=== PATIENT | female | born 1945 | race Caucasian/White ===

== ENCOUNTER 2018-02-21 17:38 | Inpatient (IN) | payer MEDICARE, OTHER ==
[~2018-02-21] VITALS: Ht 142.2 cm; Wt 59.9 kg
--- NOTE | 2018-02-21 18:14 | EKG ---
[address] [address] Test Date: 2018-02-21 Test Time: 18:05:25 Pat Name: ANTONELLA MARTINEZ Department: Room: Gender: F Change Attendant: : 1945 Requested By: ALEXIA ROWAN Order Number: [id number] Reading MD: Americo Omalley MD Measurements Intervals [place] Rate: 92 P: 54 MD: 142 QRS: 48 QRSD: 72 T: 53 QT: 326 QTc: 408 Interpretive Statements SINUS RHYTHM Electronically Signed On 02-26-2018 8:21:45 SENIOR TELECOMMUNICATIONS SPECIALIST by Americo Omalley MD
[2018-02-21 19:12] LABS: BASO # 0.1 x10^3/uL (0.0-0.2); BASO % 2 % (0-3); EOS # 0.3 x10^3/uL (0.0-0.7); EOS % 4 % (0-3); HEMATOCRIT 39.4 % (36.0-47.0); HEMOGLOBIN 12.8 g/dL (12.0-15.5); LYMPH % 27 % (24-48); MEAN CORPUSCULAR HEMOGLOBIN 30 pg (25-35); MEAN CORPUSCULAR HGB CONC 33 g/dL (31-37); MEAN CORPUSCULAR VOLUME 91 fL (79-100); MONO # 0.5 x10^3/uL (0.0-1.1); MONO % 7 % (0-9); NEUT # 4.4 x10^3uL (1.8-7.7); NEUT % 61 % (31-73); PLATELET COUNT 369 x10^3/uL (140-400); RED BLOOD COUNT 4.36 x10^6/uL (3.50-5.40); RED CELL DISTRIBUTION WIDTH 14.1 % (11.5-14.5); WHITE BLOOD COUNT 7.3 x10^3/uL (4.0-11.0)
[2018-02-21 19:37] LABS: CALCIUM 9.1 mg/dL (8.5-10.1); CREATININE 1.8 mg/dL (0.6-1.0); GFR 27.7; MAGNESIUM 2.4 mg/dL (1.8-2.4); POTASSIUM 4.5 mmol/L (3.5-5.1)
[2018-02-21] MEDS ORDERED: MAGNESIUM HYDROXIDE 2,400 MG/30 ML ORAL.SUSP. PO PRN (21:45)
[2018-02-21] MEDS ORDERED: MAG HYDROX/AL HYDROX/SIMETH 30 ML ORAL.SUSP PO PRN (21:45)
[2018-02-21] MEDS ORDERED: METHYL SALICYLATE/MENTHOL TOPICAL OINTMENT 29GM TUBE. TP PRN (21:45)
--- NOTE | 2018-02-21 22:07 | ED.ADGEN ---
Past History Past Medical History: Anxiety, COPD, Dementia, Diabetes, Hypertension Alcohol Use: None Drug Use: None Adult General Chief Complaint Chief Complaint medical screening evaluation HPI HPI Patient is a 72-year-old female presents for medical screening evaluation for psychiatric admission. Patient has history of anxiety and dementia and has had reported inappropriate behavior at medical facility. There is no recent medical complaints, hospitalizations or known recent illnesses. Patient is calm, cooperative but requires constant redirection to stay in her room. She is accompanied by a member of healthcare facility.[] Review of Systems Review of Systems Limited due to the presence of dementia. All other systems were reviewed and found to be within normal limits, except as documented in this note. Current Medications Current Medications Current Medications Medications (Trade) Dose Ordered Sig/Katie Start Time Stop Time Status Last Admin Dose Admin Acetaminophen (Tylenol) 650 mg PRN Q6HRS PRN 02/21/18 21:45 UNV Al Hydroxide/Mg Hydroxide (Mylanta Plus Xs) 15 ml PRN AFTMEALHC PRN 02/21/18 21:45 UNV Magnesium Hydroxide (Milk Of Magnesia) 2,400 mg PRN QHS PRN 02/21/18 21:45 UNV Multi-Ingredient Ointment (Analgesic [place]) 1 carmen PRN QID PRN 02/21/18 21:45 UNV Physical Exam Physical Exam Constitutional: Well developed, well nourished, no acute distress, non-toxic appearance. [] HENT: Normocephalic, atraumatic, bilateral external ears normal, oropharynx moist, no oral exudates, nose normal. [] Eyes: PERRLA, EOMI, conjunctiva normal, no discharge. [] Neck: Normal range of motion, no tenderness, supple, no stridor. [] Lungs & Thorax: Bilateral breath sounds clear to auscultation [] Extremities: No tenderness, no cyanosis, no clubbing, ROM intact, no edema. [] Neurologic: Alert and oriented person,, normal motor function, normal sensory function, no focal deficits noted. [] Psychologic: Affect normal, judgement normal, mood normal. [] Current Patient Data Vital Signs Vital Signs Date Time Temp Pulse Resp B/P (MAP) Pulse Ox O2 Delivery O2 Flow Rate FiO2 02/21/18 17:50 97.8 101 18 98 Room Air Lab Results Laboratory Tests Test 02/21/18 18:54 White Blood Count 7.3 x10^3/uL (4.0-11.0) Red Blood Count 4.36 x10^6/uL (3.50-5.40) Hemoglobin 12.8 g/dL (12.0-15.5) Hematocrit 39.4 % (36.0-47.0) Mean Corpuscular Volume 91 fL (79-100) Mean Corpuscular Hemoglobin 30 pg (25-35) Mean Corpuscular Hemoglobin Concent 33 g/dL (31-37) Red Cell Distribution Width 14.1 % (11.5-14.5) Platelet Count 369 x10^3/uL (140-400) Neutrophils (%) (Auto) 61 % (31-73) Lymphocytes (%) (Auto) 27 % (24-48) Monocytes (%) (Auto) 7 % (0-9) Eosinophils (%) (Auto) 4 % (0-3) H Basophils (%) (Auto) 2 % (0-3) Neutrophils # (Auto) 4.4 x10^3uL (1.8-7.7) Lymphocytes # (Auto) 2.0 x10^3/uL (1.0-4.8) Monocytes # (Auto) 0.5 x10^3/uL (0.0-1.1) Eosinophils # (Auto) 0.3 x10^3/uL (0.0-0.7) Basophils # (Auto) 0.1 x10^3/uL (0.0-0.2) Sodium Level 137 mmol/L (136-145) Potassium Level 4.5 mmol/L (3.5-5.1) Chloride Level 102 mmol/L (98-107) Carbon Dioxide Level 28 mmol/L (21-32) Anion Gap 7 (6-14) Blood Urea Nitrogen 27 mg/dL (7-20) H Creatinine 1.8 mg/dL (0.6-1.0) H Estimated GFR (Cockcroft-Gault) 27.7 Glucose Level 138 mg/dL (70-99) H Calcium Level 9.1 mg/dL (8.5-10.1) Magnesium Level 2.4 mg/dL (1.8-2.4) EKG EKG [EKG: Reviewed] Radiology/Procedures Radiology/Procedures [] Course & Med Decision Making Course & Med Decision Making Pertinent Labs and Imaging studies reviewed. (See chart for details) [Medically stable for psychiatric admission.] Final Impression Final Impression [#1 encounter for medical clearance for psychiatric hospitalization] Baldomero Disclaimer Baldomero Disclaimer This electronic medical record was generated, in whole or in part, using a voice recognition dictation system. ALEXIA ROWAN DO Feb 21, 2018 22:07
[2018-02-21] MEDS ORDERED: FAMO20TA5 PO (22:45)
[2018-02-21] MEDS ORDERED: LOPE2TAB56 PO (22:45)
[2018-02-21] MEDS ORDERED: RISP1TAB43 PO (22:45)
[2018-02-21] MEDS ORDERED: EZET10TA18 PO (22:45)
[2018-02-21] MEDS ORDERED: CETI-282 PO (22:45)
[2018-02-21] MEDS ORDERED: LISI10TA2 PO (22:45)
[2018-02-21] MEDS ORDERED: TRAM50TA PO (22:45)
[2018-02-21] MEDS ORDERED: NYST15OI TP (22:45)
[2018-02-21] MEDS ORDERED: ASPI-630 PO (22:45)
[2018-02-21] MEDS ORDERED: LEVO25TA4 PO (22:45)
[2018-02-21] MEDS ORDERED: CITA20TA9 PO (22:45)
[2018-02-21] MEDS ORDERED: ACET325T9 PO (22:45)
[2018-02-21] MEDS ORDERED: RISP0.2519 PO (22:45)
[2018-02-21] MEDS ORDERED: INSU100I32 SQ (22:45)
[2018-02-21] MEDS ORDERED: LOPE2TAB27 PO (22:45)
[2018-02-21] MEDS ORDERED: ALPR1TAB6 PO (22:45)
[2018-02-21] MEDS ORDERED: KETO10DR6 EACHEYE (22:45)
[2018-02-21] MEDS ORDERED: SIME80TA14 PO (22:45)
[2018-02-21] MEDS ORDERED: TRAZ-85 PO (22:45)
[2018-02-21] MEDS ORDERED: GUAI-66 PO (22:45)
[2018-02-21] MEDS ORDERED: IPRA3AMP29 NEB (22:45)
[2018-02-21] MEDS ORDERED: BISA-42 PO (22:45)
[2018-02-21] MEDS ORDERED: CARB15DR3 EACHEYE (22:45)
--- NOTE | 2018-02-21 22:49 | PDOC ---
Exam Note: Michael Note: Please also refer to the separate dictated note~for this date of service dictated separately. Discussed the patient with Nursing staff reviewed the chart.~Reviewed interim history and current functioning. Reviewed vital signs,~ Labs/ Radiology~and current medications noted below. Continue current treatment with the changes noted in the dictated addendum note Assessment: Vital Signs: Vital Signs Date Time Temp Pulse Resp B/P (MAP) Pulse Ox O2 Delivery O2 Flow Rate FiO2 02/21/18 17:50 97.8 101 18 98 Room Air Labs: Laboratory Tests Test 02/21/18 18:54 White Blood Count 7.3 x10^3/uL (4.0-11.0) Red Blood Count 4.36 x10^6/uL (3.50-5.40) Hemoglobin 12.8 g/dL (12.0-15.5) Hematocrit 39.4 % (36.0-47.0) Mean Corpuscular Volume 91 fL (79-100) Mean Corpuscular Hemoglobin 30 pg (25-35) Mean Corpuscular Hemoglobin Concent 33 g/dL (31-37) Red Cell Distribution Width 14.1 % (11.5-14.5) Platelet Count 369 x10^3/uL (140-400) Neutrophils (%) (Auto) 61 % (31-73) Lymphocytes (%) (Auto) 27 % (24-48) Monocytes (%) (Auto) 7 % (0-9) Eosinophils (%) (Auto) 4 % (0-3) H Basophils (%) (Auto) 2 % (0-3) Neutrophils # (Auto) 4.4 x10^3uL (1.8-7.7) Lymphocytes # (Auto) 2.0 x10^3/uL (1.0-4.8) Monocytes # (Auto) 0.5 x10^3/uL (0.0-1.1) Eosinophils # (Auto) 0.3 x10^3/uL (0.0-0.7) Basophils # (Auto) 0.1 x10^3/uL (0.0-0.2) Sodium Level 137 mmol/L (136-145) Potassium Level 4.5 mmol/L (3.5-5.1) Chloride Level 102 mmol/L (98-107) Carbon Dioxide Level 28 mmol/L (21-32) Anion Gap 7 (6-14) Blood Urea Nitrogen 27 mg/dL (7-20) H Creatinine 1.8 mg/dL (0.6-1.0) H Estimated GFR (Cockcroft-Gault) 27.7 Glucose Level 138 mg/dL (70-99) H Calcium Level 9.1 mg/dL (8.5-10.1) Magnesium Level 2.4 mg/dL (1.8-2.4) Current Medications: Meds: Current Medications Acetaminophen (Tylenol) 650 mg PRN Q6HRS PRN PO PAIN / TEMP; Start 02/21/18 at 21:45 Multi-Ingredient Ointment (Analgesic [place]) 1 carmen PRN QID PRN TP MUSCLE PAIN; Start 02/21/18 at 21:45 Al Hydroxide/Mg Hydroxide (Mylanta Plus Xs) 15 ml PRN AFTMEALHC PRN PO DYSPEPSIA; Start 02/21/18 at 21:45 Magnesium Hydroxide (Milk Of Magnesia) 2,400 mg PRN QHS PRN PO CONSTIPATION; Start 02/21/18 at 21:45 Active Scripts Active Reported Nystatin 15 Gm Oint...g. 1 Carmen TP PRN BID PRN Margo-Tussin (Guaifenesin) 100 Mg/5 Ml Liquid 20 Ml PO PRN Q4HRS PRN Tylenol (Acetaminophen) 325 Mg Tablet 2 Tab PO PRN BID PRN Alaway (Ketotifen Fumarate) 10 Ml Drops 1 Drop EACHEYE PRN TID PRN Lisinopril 10 Mg Tablet 10 Mg PO DAILY Teeaglkimberly Sibleypen U-100 (Insulin Glargine,Hum.rec.anlog) 100 Unit/1 Ml Insuln.pen 6 Unit SQ HS Duoneb 0.5-3(2.5) Mg/3 Ml (Albuterol/Ipratropium) 3 Ml Ampul.neb 3 Ml NEB PRN Q6HRS PRN Alprazolam 1 Mg Tablet 1 Mg PO PRN TID PRN Simethicone 80 Mg Tab.chew 125 Mg PO PRN Q6HRS PRN Aspirin 81 Mg Tab.chew 81 Mg PO DAILY Loperamide (Loperamide Hcl) 2 Mg Tablet 2 Mg PO PRN 1X PRN Anti-Diarrhea (Loperamide Hcl) 2 Mg Tablet 2 Mg PO PRN Q6HRS PRN Tramadol Hcl (Tramadol HCl) 50 Mg Tablet 50 Mg PO PRN Q6HRS PRN Refresh Optive Eye Drops (Carboxymethylcellulos/Glycerin) 15 Ml Drops 1 Drop EACHEYE QID Famotidine 20 Mg Tablet 10 Mg PO PRN DAILY PRN Dulcolax (Bisacodyl) 5 Mg Tablet.dr 5 Mg PO PRN DAILY PRN Risperdal (Risperidone) 1 Mg Tablet 1 Mg PO QHS Risperdal (Risperidone) 0.25 Mg Tablet 0.75 Mg PO QHS Levothyroxine Sodium 25 Mcg Tablet 25 Mcg PO DAILYAC Zetia (Ezetimibe) 10 Mg Tablet 10 Mg PO DAILY Trazodone Hcl 50 Mg Tablet 50 Mg PO DAILY Celexa (Citalopram Hydrobromide) 20 Mg Tablet 20 Mg PO DAILY 24Hour Allergy (Cetirizine HCl) 10 Mg Tablet 10 Mg PO DAILY I have reviewed the current psychotropics carefully including drug interactions. Risk benefit ratio favors no change other than as noted in my dictated progress note. MARIAN PENA MD Feb 21, 2018 22:49
[2018-02-21 23:11] LABS: ALBUMIN 3.9 g/dL (3.4-5.0); DIRECT BILIRUBIN 0.1 mg/dL (0.0-0.2); TOTAL BILIRUBIN 0.2 mg/dL (0.2-1.0); TOTAL PROTEIN 7.9 g/dL (6.4-8.2)
[2018-02-22] MEDS ORDERED: BISACODYL TAB 5 MG TABLET.DR. PO PRN (02:00)
[2018-02-22] MEDS ORDERED: IPRATRPIUM/ALBUTEROL 0.5/2.5MG 3 ML NEBU. NEB PRN (02:00)
[2018-02-22] MEDS ORDERED: LOPERAMIDE 2 MG CAPSULE PO PRN ×3 (02:00→10:15)
[2018-02-22] MEDS ORDERED: FAMOTIDINE 20 MG TABLET PO PRN (02:00)
[2018-02-22] MEDS ORDERED: guaiFENesin 300 MG/15 ML LIQUID PO PRN (02:00)
[2018-02-22] MEDS ORDERED: NYSTATIN 100,000 UNIT/GM TOPICAL OINTMENT 15GM TUBE. TP PRN (02:00)
[2018-02-22] MEDS ORDERED: ALPRAZolam 0.5 MG TABLET PO PRN (02:00)
[2018-02-22] MEDS ORDERED: SIMETHICONE 80 MG TAB.CHEW PO PRN (02:00)
[2018-02-22] MEDS: LEVOTHYROXINE 25 MCG TABLET. PO SCH (05:23)
[2018-02-22] MEDS: ASPIRIN 81 MG TAB.CHEW PO SCH (05:23)
[2018-02-22 05:27] VITALS: BP 117/55
[2018-02-22] MEDS ORDERED: KETOTIFEN FUMARATE 0.025% OPHT SOLUTION BOTTLE. OU PRN (07:45)
[2018-02-22] MEDS ORDERED: POLYVINYL ALCOHOL/POVIDONE/PF OPHTH SOLUTION DROPERETTE. OU SCH (09:00)
[2018-02-22] MEDS ORDERED: POLYVINYL ALCOHOL 1.4% OPHTH SOLUTION 15ML BOTTLE. OU SCH (09:00)
[2018-02-22] MEDS ORDERED: traZODone 50 MG TABLET. PO SCH (09:00)
[2018-02-22] MEDS ORDERED: POLYVINYL ALCOHOL/POVIDONE/PF OPHTH SOLUTION DROPERETTE. OU PRN (10:15)
[2018-02-22] MEDS: EZETIMIBE 10 MG TABLET PO SCH (10:26)
[2018-02-22] MEDS: CETIRIZINE HCL 10 MG TABLET PO SCH (10:28)
[2018-02-22] MEDS: LISINOPRIL 10 MG TABLET PO SCH (10:28)
[2018-02-22] MEDS: CITALOPRAM 20 MG TABLET. PO SCH (10:28)
[2018-02-22] MEDS: risperiDONE 0.25 MG TABLET. PO SCH (10:28)
[2018-02-22] MEDS: ACETAMINOPHEN 325 MG TABLET PO PRN (10:30)
[2018-02-22 12:36] LABS: BILIRUBIN,URINE NEG (NEG); CLARITY,URINE CLEAR; COLOR,URINE STRAW; GLUCOSE,URINE NEG (NEG); NITRITE,URINE NEG (NEG); RBC,URINE 0 /HPF (0-2); UROBILINOGEN,URINE 0.2 mg/dL (0.2 mg/dL)
[2018-02-22 12:37] LABS: BACTERIA,URINE FEW /HPF (0-FEW); SQUAMOUS EPITHELIAL CELL,UR OCC /LPF; YEAST,URINE PRESENT /HPF
[2018-02-22 15:42] VITALS: BP 135/76
[2018-02-22] MEDS: ACETAMINOPHEN 325 MG TABLET PO SCH (20:56)
[2018-02-22] MEDS: INSULIN GLARGINE 300 UNITS/3 ML INSULN.PEN. SQ SCH (20:58)
[2018-02-22] MEDS ORDERED: RISPERIDONE 1 MG PO SCH (21:00)
--- NOTE | 2018-02-22 22:38 | PDOC ---
Exam Note: Michael Note: Please also refer to the separate dictated note~for this date of service dictated separately.~Patient seen individually. Discussed the patient with Nursing staff reviewed the chart.~Reviewed interim history and current functioning. Reviewed vital signs,~Labs/ Radiology~and current medications noted below. Continue current treatment with the changes noted in the dictated addendum note Assessment: Vital Signs: Vital Signs Date Time Temp Pulse Resp B/P (MAP) Pulse Ox O2 Delivery O2 Flow Rate FiO2 02/22/18 15:42 98.4 94 20 135/76 (95) 95 Room Air Labs: Laboratory Tests Test 02/22/18 11:50 02/22/18 19:25 Urine Collection Type Unknown Urine Color Straw Urine Clarity Clear Urine pH 7.0 Urine Specific Willard 1.015 Urine Protein Neg (NEG-TRACE) Urine Glucose (UA) Neg mg/dL (NEG) Urine Ketones (Stick) Neg mg/dL (NEG) Urine Blood Neg (NEG) Urine Nitrite Neg (NEG) Urine Bilirubin Neg (NEG) Urine Urobilinogen Dipstick 0.2 mg/dL (0.2 mg/dL) Urine Leukocyte Esterase Neg (NEG) Urine RBC 0 /HPF (0-2) Urine WBC 1-4 /HPF (0-4) Urine Squamous Epithelial Cells Occ /LPF Urine Bacteria Few /HPF (0-FEW) Urine Yeast Present /HPF Glucose (Fingerstick) 107 mg/dL (70-99) H Current Medications: Meds: Current Medications Acetaminophen (Tylenol) 650 mg PRN Q6HRS PRN PO PAIN / TEMP Last administered on 02/22/18at 10:30; Start 02/21/18 at 21:45 Multi-Ingredient Ointment (Analgesic [place]) 1 hayley PRN QID PRN TP MUSCLE PAIN; Start 02/21/18 at 21:45 Al Hydroxide/Mg Hydroxide (Mylanta Plus Xs) 15 ml PRN AFTMEALHC PRN PO DYSPEPSIA Last administered on 02/22/18at 13:53; Start 02/21/18 at 21:45 Magnesium Hydroxide (Milk Of Magnesia) 2,400 mg PRN QHS PRN PO CONSTIPATION; Start 02/21/18 at 21:45 Bisacodyl (Dulcolax Tab) 5 mg PRN DAILY PRN PO CONSTIPATION; Start 02/22/18 at 02:00 Citalopram Hydrobromide (CeleXA) 20 mg DAILY PO Last administered on at 10:28; Start 02/22/18 at 09:00 Guaifenesin (Robitussin) 400 mg PRN Q4HRS PRN PO COUGH; Start 02/22/18 at 02: 00 Insulin Glargine (Lantus) 6 units HS SQ Last administered on 02/22/18at 20:58; Start 02/22/18 at 21:00 Albuterol/ Ipratropium (Duoneb) 3 ml PRN Q6HRS PRN NEB copd; Start 02/22/18 at 02:00 Lisinopril (Prinivil) 10 mg DAILY PO Last administered on 02/22/18at 10:28; Start 02/22/18 at 09:00 Nystatin (Mycostatin) 1 hayley PRN BID PRN TP redness/rash; Start 02/22/18 at 02: 00 Simethicone (Gas-X) 120 mg PRN Q6HRS PRN PO DYSPEPSIA; Start 02/22/18 at 02:00 Tramadol HCl (Ultram) 50 mg PRN Q6HRS PRN PO PAIN; Start 02/22/18 at 02:00 Alprazolam (Xanax) 1 mg PRN TID PRN PO ANXIETY / AGITATION; Start 02/22/18 at 02:00 Aspirin (Children'S Aspirin) 81 mg DAILYWBKFT PO Last administered on at 05:23; Start 02/22/18 at 08:00 Artificial Tears (Artificial Tears) 1 drop QID OU ; Start 02/22/18 at 09:00; Status Cancel Cetirizine HCl (ZyrTEC) 10 mg DAILY PO Last administered on 02/22/18at 10:28; Start 02/22/18 at 09:00 EZETIMIBE (Zetia) 10 mg DAILY PO Last administered on 02/22/18at 10:26; Start 02/22/18 at 09:00 Famotidine (Pepcid) 10 mg PRN DAILY PRN PO DYSPEPSIA Last administered on 02/22at 13:53; Start 02/22/18 at 02:00 Ketotifen Fumarate (Zaditor) 1 drop PRN TID PRN OU ITCHY EYES Last administered on 02/22/18at 16:49; Start 02/22/18 at 07:45 Levothyroxine Sodium (Synthroid) 25 mcg DAILY06 PO Last administered on at 05:23; Start 02/22/18 at 06:00 Loperamide HCl (Imodium) 2 mg PRN Q6HRS PRN PO DIARRHEA; Start 02/22/18 at 02: 00 Loperamide HCl (Imodium) 2 mg PRN 1X PRN PO DIARRHEA; Start 02/22/18 at 02:00 ; Stop 02/22/18 at 10:04; Status DC Risperidone (RisperDAL) 0.75 mg DAILY PO Last administered on 02/22/18at 10:28 ; Start 02/22/18 at 09:00 Non-Formulary Medication (Risperidone (Risperdal)) 1 mg QHS PO ; Start at 21:00; Stop 02/22/18 at 21:00; Status DC Trazodone HCl (Desyrel) 50 mg DAILY PO Last administered on 02/22/18at 10:29; Start 02/22/18 at 09:00; Stop 02/22/18 at 10:04; Status DC Artificial Tears (Refresh Classic) 1 drop QID OU ; Start 02/22/18 at 09:00; Stop 02/22/18 at 10:04; Status DC Acetaminophen (Tylenol) 650 mg BID PO Last administered on 02/22/18at 20:56; Start 02/22/18 at 21:00 Loperamide HCl (Imodium) 4 mg PRN DAILY PRN PO DIARRHEA Last administered on at 10:48; Start 02/22/18 at 10:15 Artificial Tears (Refresh Classic) 1 drop PRN QID PRN OU DRY EYE; Start at 10:15 Trazodone HCl (Desyrel) 25 mg DAILY PO ; Start 02/23/18 at 09:00 Active Scripts Active Reported Nystatin 15 Gm Oint...g. 1 Hayley TP PRN BID PRN Margo-Tussin (Guaifenesin) 100 Mg/5 Ml Liquid 20 Ml PO PRN Q4HRS PRN Tylenol (Acetaminophen) 325 Mg Tablet 2 Tab PO BID Alaway (Ketotifen Fumarate) 10 Ml Drops 1 Drop EACHEYE PRN TID PRN Lisinopril 10 Mg Tablet 10 Mg PO DAILY Basaglar Kwikpen U-100 (Insulin Glargine,Hum.rec.anlog) 100 Unit/1 Ml Insuln.pen 6 Unit SQ HS Duoneb 0.5-3(2.5) Mg/3 Ml (Albuterol/Ipratropium) 3 Ml Ampul.neb 3 Ml NEB PRN Q6HRS PRN Alprazolam 1 Mg Tablet 1 Mg PO PRN TID PRN Simethicone 80 Mg Tab.chew 125 Mg PO PRN Q6HRS PRN Aspirin 81 Mg Tab.chew 81 Mg PO DAILY Loperamide (Loperamide Hcl) 2 Mg Tablet 4 Mg PO PRN DAILY PRN Anti-Diarrhea (Loperamide Hcl) 2 Mg Tablet 2 Mg PO PRN Q6HRS PRN Tramadol Hcl (Tramadol HCl) 50 Mg Tablet 50 Mg PO PRN Q6HRS PRN Refresh Optive Eye Drops (Carboxymethylcellulos/Glycerin) 15 Ml Drops 1 Drop EACHEYE PRN QID PRN Famotidine 20 Mg Tablet 10 Mg PO PRN DAILY PRN Dulcolax (Bisacodyl) 5 Mg Tablet.dr 5 Mg PO PRN DAILY PRN Risperdal (Risperidone) 0.25 Mg Tablet 0.75 Mg PO QHS Levothyroxine Sodium 25 Mcg Tablet 25 Mcg PO DAILYAC Zetia (Ezetimibe) 10 Mg Tablet 10 Mg PO DAILY Trazodone Hcl 50 Mg Tablet 25 Mg PO DAILY Celexa (Citalopram Hydrobromide) 20 Mg Tablet 20 Mg PO DAILY 24Hour Allergy (Cetirizine HCl) 10 Mg Tablet 10 Mg PO DAILY I have reviewed the current psychotropics carefully including drug interactions. Risk benefit ratio favors no change other than as noted in my dictated progress note. Diagnosis: Problems: (1) Anxiety disorder (2) Dementia, vascular, with delusions (3) Dementia, vascular, with depression (4) Dementia in Alzheimer's disease with depression (5) Dementia in Alzheimer's disease with delusions (6) Impulse control disorder MARIAN PENA MD Feb 22, 2018 22:38
[2018-02-23] MEDS: LEVOTHYROXINE 25 MCG TABLET. PO SCH (05:24)
[2018-02-23 06:15] VITALS: BP 108/70
[2018-02-23] MEDS: ACETAMINOPHEN 325 MG TABLET PO SCH ×2 (07:51→18:09)
[2018-02-23] MEDS: LISINOPRIL 10 MG TABLET PO SCH (07:51)
[2018-02-23] MEDS: risperiDONE 0.25 MG TABLET. PO SCH (07:51)
[2018-02-23] MEDS: ASPIRIN 81 MG TAB.CHEW PO SCH (07:51)
[2018-02-23] MEDS: CETIRIZINE HCL 10 MG TABLET PO SCH (07:51)
[2018-02-23] MEDS: CITALOPRAM 20 MG TABLET. PO SCH (07:51)
[2018-02-23] MEDS: EZETIMIBE 10 MG TABLET PO SCH (07:51)
[2018-02-23] MEDS: traZODone 50 MG TABLET. PO SCH (07:53)
--- NOTE | 2018-02-23 09:13 | CONS ---
DATE OF CONSULTATION: 02/22/2018 REASON FOR CONSULTATION: Medical management. HISTORY OF PRESENT ILLNESS: The patient is a 72-year-old female patient, a resident at [place], [place], who was admitted on account of the fact that she called the police about delusional theft, slamming and banging on doors, said her doctor had proposed to her. All this in a background of dementia, depression, behavioral disturbances, and delusion. She has multiple medical problems including hypertension, type 2 diabetes, hyperlipidemia, COPD. PAST PSYCHIATRIC HISTORY: Significant for dementia, depression and delusion. PAST SURGICAL HISTORY: Unremarkable. FAMILY HISTORY: Unremarkable. SOCIAL HISTORY: She is currently a resident at [facility] and no further information that could obtained from her. ALLERGIES: She has a huge list of allergies, as SHE IS ALLERGIC TO LORAZEPAM, ACETAMINOPHEN, BACLOFEN, OXYCODONE, NITROFURANTOIN, AMOXICILLIN, PREVACID, WELLBUTRIN, DANTROLENE, FLEXERIL, ATORVASTATIN, SPRIX, FERMENTOL, DULOXETINE AND ANORO ELLIPTA, TORADOL, ZOFRAN, CEFDINIR, NITROSTAT. MEDICATIONS: She is currently on following medications: She is on cetirizine 10 mg once a day, ipratropium bromide, albuterol sulfate by nebulizer every 6 hours, Zetia 10 mg at bedtime, lisinopril 10 mg once a day, aspirin 81 mg once a day, tramadol 50 mg every 6 hours, Tylenol 650 mg twice a day, citalopram hydrobromide for Celexa 20 mg daily, trazodone 25 mg daily, risperidone 0.75 mg at bedtime, alprazolam 1 mg 3 times a day, guaifenesin 20 mL every 4 hours. She is on ketotifen fumarate 1 drop to both eyes 3 times a day, Refresh Optive eyedrops 1 drop to both eyes 4 times a day, loperamide 2 mg every 6 hours, loperamide 4 mg daily. She is on simethicone 125 mg every 6 hours, bisacodyl 5 mg orally daily p.r.n. for constipation, famotidine 20 mg daily. She is on Lantus insulin 6 units at bedtime, levothyroxine sodium 25 mcg once a day, nystatin ointment applied topically twice a day. PHYSICAL EXAMINATION: GENERAL: On examining her, she looked well and was clearly in no apparent respiratory distress, pale, not jaundice, cyanosis, thyromegaly. No jugular venous distension. No limb edema. VITAL SIGNS: Her heart rate was 78, blood pressure was 117/75, temperature was 97.8, respiratory rate 20, and oxygen saturation was 95%. HEAD, EYES, EARS, NOSE AND THROAT: Showed normocephalic, atraumatic. NECK: Supple. HEART: Showed normal first and second heart sounds with no gallop, rub or murmur. CHEST: Clear to auscultation. No crepitation or rhonchi. ABDOMEN: Distended, soft, nontender. NEUROLOGIC: She is confused, delusional, paranoid, but otherwise all her cranial nerves are intact. EXTREMITIES: She moves extremities without difficulty. She ambulates without assistance or assistive devices. LABORATORY WORK: Shows a white cell count 7300, hemoglobin 13, hematocrit 39, MCV 91, and platelet count 369,000. Her chemistry showed a serum sodium 137, potassium 4.5, chloride 102, bicarbonate 28, anion gap of 7, BUN 27, creatinine 1.8, estimated GFR was 28 mL per minute. Her glucose 138, calcium 9.1, magnesium 2.4. Her total bilirubin, AST, ALT, alkaline phosphatase were normal. Total protein was 7.9, albumin was 3.9. She has mixed hyperlipidemia. TSH was 2.429. Unfortunately, she is allergic to STATINS. She is on Zetia, but apparently is not efficient. Urinalysis was essentially unremarkable. IMPRESSION: In summary, this is a 72-year-old female patient, a resident at [facility], who came in with the account that she called the police about delusional theft, slamming and banging on doors, said her doctor I had proposed to her. All this in a background of dementia with depression. Medically, all her vital signs are stable. Her lab works are all within acceptable range. PLAN: My plan is to follow her closely and review all the lab work that are still pending at the time of this dictation. Thank you, Dr. Yusuf for allowing me to participate in the care of this patient. AGUILA SULLIVAN MD DR: Xuan JOB#: [id number] / [id number]
--- NOTE | 2018-02-23 10:49 | HP ---
ADMIT DATE: 02/21/2018 PSYCHIATRIC ADMISSION HISTORY/EVALUATION This is a late entry 02/22/2018 covers elements not covered in my initial note. I met with the patient in the evening previously discussed with the nursing staff on several occasions and with Sarah Neely, health unit coordinator after the patient referred to us from [facility] in [place], [place] by Dr. Samson , her primary care physician on account of worsening confusion, psychosis. Reportedly on 02/21/2018, she called the police about delusional thefts and people were stealing. She was slamming and banging on the doors. She said her doctor had proposed to her. She was quite manic, psychotic, confused, disoriented, had failed outpatient psychiatric interventions resulting in this referral. CHIEF COMPLAINT: "No, I don't know the date. My memory is not good." HISTORY OF PRESENT ILLNESS: The patient has a history of dementia, Alzheimer's vascular type. More recently, she has appeared more confused, paranoid, delusional, agitated, aggressive as noted above. She is calling the police accusing others of stealing her belongings, throwing the phone, beating on the doors, windows, yelling out with periods of belligerence. She has pushes other residents on to the floor, significant risk of hurting others. She has voiced suicidal ideation on 02/15/2018. She was sent to the ER on 02/15/2018 and then been on one-on-one status to consequent to the suicidal ideation. She has previously been at inpatient psychiatry at [facility] in 11/2016, 09/2017. No clear history of bipolar disorder, but she does have a history of mood swings. PAST PSYCHIATRIC HISTORY: As above. MEDICAL HISTORY: Diabetes mellitus, hypertension, hyperlipidemia, COPD. ACCU-CHEKS: A.c. and at bedtime. CODE STATUS: DNR. ALLERGIES: LORAZEPAM, TYLENOL, BACLOFEN, OXYCODONE, NITROFURANTOIN, , PREVACID, BUPROPION, DANTROLENE, FLEXERIL, LIPITOR, SPIRIVA, CYMBALTA, ANORO ELLIPTA, TORADOL, ZOFRAN, CEFDINIR, NITROSTAT. DIET: Regular. Takes medications whole, ambulates up ad nanda. UA in the ER showed few bacteria, 1-4 wbc's. CURRENT PSYCHOTROPICS: Celexa 20 mg a day, trazodone 50 mg daily, Risperdal 0.75 mg daily, Ativan 1 mg t.i.d. p.r.n. anxiety. FAMILY HISTORY: Noncontributory. SOCIAL HISTORY: No alcohol, drug abuse, physical, sexual or elder abuse history is noted. She is not known to be a perpetrator. REACTION TO HOSPITALIZATION: The patient accepting of this. ASSETS: Supportive, living at the nursing facility. MENTAL STATUS EXAM: The patient was seen individually evening of 02/22/2018. The patient is oriented to herself. Insight, judgment, recent and remote memory, attention, concentration, fund of knowledge poor, consistent with her diagnosis. She was unaware of the year or the name of the president, though she came up with "Trump" much later. She remains paranoid, delusional. LABORATORY DATA: Reviewed. IMPRESSION: Major neurocognitive disorder, Alzheimer, vascular with delusion, depression, behavioral disturbance; anxiety disorder, unspecified; impulse control disorder, unspecified. Rest unchanged as above. PLAN: Admit to geropsychiatry unit at [facility]. I will see the patient daily individually from a psychiatric standpoint, medical followup with Dr. Dudley/Dr. Bennett. Continue the patient on her current psychotropics. Obtain past psychiatric records. Consider CT head if not done. Workup dementia. Observe baseline, then adjust further as clinically indicated. Estimated length of stay 10-12 days. DISPOSITION: Plans back to [facility]. MAN Nura PENA MD DR: LILIA/[place] JOB#: [id number] / [id number]
[2018-02-23 15:52] VITALS: BP 111/70
[2018-02-23] MEDS: INSULIN GLARGINE 300 UNITS/3 ML INSULN.PEN. SQ SCH (19:37)
--- NOTE | 2018-02-23 22:26 | PDOC ---
Exam Note: Michael Note: Please also refer to the separate dictated note~for this date of service dictated separately.~Patient seen individually. Discussed the patient with Nursing staff reviewed the chart.~Reviewed interim history and current functioning. Reviewed vital signs,~Labs/ Radiology~and current medications noted below. Continue current treatment with the changes noted in the dictated addendum note Assessment: Vital Signs: Vital Signs Date Time Temp Pulse Resp B/P (MAP) Pulse Ox O2 Delivery O2 Flow Rate FiO2 02/23/18 15:52 97.8 83 19 111/70 (84) 96 Room Air I&O Intake and Output 02/23/18 07:00 Intake Total 680 ml Balance 680 ml Intake Oral 680 ml # Voids 1 # Bowel Movements 1 Labs: Laboratory Tests Test 02/23/18 07:00 02/23/18 19:24 Glucose (Fingerstick) 117 mg/dL (70-99) H 128 mg/dL (70-99) H Current Medications: Meds: Current Medications Acetaminophen (Tylenol) 650 mg PRN Q6HRS PRN PO PAIN / TEMP Last administered on 02/22/18at 10:30; Start 02/21/18 at 21:45 Multi-Ingredient Ointment (Analgesic [place]) 1 hayley PRN QID PRN TP MUSCLE PAIN; Start 02/21/18 at 21:45 Al Hydroxide/Mg Hydroxide (Mylanta Plus Xs) 15 ml PRN AFTMEALHC PRN PO DYSPEPSIA Last administered on 02/22/18at 13:53; Start 02/21/18 at 21:45 Magnesium Hydroxide (Milk Of Magnesia) 2,400 mg PRN QHS PRN PO CONSTIPATION; Start 02/21/18 at 21:45 Bisacodyl (Dulcolax Tab) 5 mg PRN DAILY PRN PO CONSTIPATION; Start 02/22/18 at 02:00 Citalopram Hydrobromide (CeleXA) 20 mg DAILY PO Last administered on at 07:51; Start 02/22/18 at 09:00 Guaifenesin (Robitussin) 400 mg PRN Q4HRS PRN PO COUGH; Start 02/22/18 at 02: 00 Insulin Glargine (Lantus) 6 units HS SQ Last administered on 02/23/18at 19:37; Start 02/22/18 at 21:00 Albuterol/ Ipratropium (Duoneb) 3 ml PRN Q6HRS PRN NEB copd; Start 02/22/18 at 02:00 Lisinopril (Prinivil) 10 mg DAILY PO Last administered on 02/23/18at 07:51; Start 02/22/18 at 09:00 Nystatin (Mycostatin) 1 hayley PRN BID PRN TP redness/rash; Start 02/22/18 at 02: 00 Simethicone (Gas-X) 120 mg PRN Q6HRS PRN PO DYSPEPSIA; Start 02/22/18 at 02:00 Tramadol HCl (Ultram) 50 mg PRN Q6HRS PRN PO PAIN; Start 02/22/18 at 02:00 Alprazolam (Xanax) 1 mg PRN TID PRN PO ANXIETY / AGITATION; Start 02/22/18 at 02:00; Stop 02/23/18 at 16:38; Status DC Aspirin (Children'S Aspirin) 81 mg DAILYWBKFT PO Last administered on at 07:51; Start 02/22/18 at 08:00 Artificial Tears (Artificial Tears) 1 drop QID OU ; Start 02/22/18 at 09:00; Status Cancel Cetirizine HCl (ZyrTEC) 10 mg DAILY PO Last administered on 02/23/18at 07:51; Start 02/22/18 at 09:00 EZETIMIBE (Zetia) 10 mg DAILY PO Last administered on 02/23/18at 07:51; Start 02/22/18 at 09:00 Famotidine (Pepcid) 10 mg PRN DAILY PRN PO DYSPEPSIA Last administered on 02/22at 13:53; Start 02/22/18 at 02:00 Ketotifen Fumarate (Zaditor) 1 drop PRN TID PRN OU ITCHY EYES Last administered on 02/22/18at 16:49; Start 02/22/18 at 07:45 Levothyroxine Sodium (Synthroid) 25 mcg DAILY06 PO Last administered on at 05:24; Start 02/22/18 at 06:00 Loperamide HCl (Imodium) 2 mg PRN Q6HRS PRN PO DIARRHEA; Start 02/22/18 at 02: 00 Loperamide HCl (Imodium) 2 mg PRN 1X PRN PO DIARRHEA; Start 02/22/18 at 02:00 ; Stop 02/22/18 at 10:04; Status DC Risperidone (RisperDAL) 0.75 mg DAILY PO Last administered on 02/23/18at 07:51 ; Start 02/22/18 at 09:00 Non-Formulary Medication (Risperidone (Risperdal)) 1 mg QHS PO ; Start at 21:00; Stop 02/22/18 at 21:00; Status DC Trazodone HCl (Desyrel) 50 mg DAILY PO Last administered on 02/22/18at 10:29; Start 02/22/18 at 09:00; Stop 02/22/18 at 10:04; Status DC Artificial Tears (Refresh Classic) 1 drop QID OU ; Start 02/22/18 at 09:00; Stop 02/22/18 at 10:04; Status DC Acetaminophen (Tylenol) 650 mg BID PO Last administered on 02/23/18at 18:09; Start 02/22/18 at 21:00 Loperamide HCl (Imodium) 4 mg PRN DAILY PRN PO DIARRHEA Last administered on at 10:48; Start 02/22/18 at 10:15 Artificial Tears (Refresh Classic) 1 drop PRN QID PRN OU DRY EYE; Start at 10:15 Trazodone HCl (Desyrel) 25 mg DAILY PO Last administered on 02/23/18at 07:53; Start 02/23/18 at 09:00 Olanzapine (ZyPREXA ZYDIS) 2.5 mg PRN Q2HR PRN PO PSYCHOSIS; Start 02/23/18 at 16:45 Active Scripts Active Reported Nystatin 15 Gm Oint...g. 1 Hayley TP PRN BID PRN Margo-Tussin (Guaifenesin) 100 Mg/5 Ml Liquid 20 Ml PO PRN Q4HRS PRN Tylenol (Acetaminophen) 325 Mg Tablet 2 Tab PO BID [place] (Ketotifen Fumarate) 10 Ml Drops 1 Drop EACHEYE PRN TID PRN Lisinopril 10 Mg Tablet 10 Mg PO DAILY Basaglar Kwikpen U-100 (Insulin Glargine,Hum.rec.anlog) 100 Unit/1 Ml Insuln.pen 6 Unit SQ HS Duoneb 0.5-3(2.5) Mg/3 Ml (Albuterol/Ipratropium) 3 Ml Ampul.neb 3 Ml NEB PRN Q6HRS PRN Alprazolam 1 Mg Tablet 1 Mg PO PRN TID PRN Simethicone 80 Mg Tab.chew 125 Mg PO PRN Q6HRS PRN Aspirin 81 Mg Tab.chew 81 Mg PO DAILY Loperamide (Loperamide Hcl) 2 Mg Tablet 4 Mg PO PRN DAILY PRN Anti-Diarrhea (Loperamide Hcl) 2 Mg Tablet 2 Mg PO PRN Q6HRS PRN Tramadol Hcl (Tramadol HCl) 50 Mg Tablet 50 Mg PO PRN Q6HRS PRN Refresh Optive Eye Drops (Carboxymethylcellulos/Glycerin) 15 Ml Drops 1 Drop EACHEYE PRN QID PRN Famotidine 20 Mg Tablet 10 Mg PO PRN DAILY PRN Dulcolax (Bisacodyl) 5 Mg Tablet.dr 5 Mg PO PRN DAILY PRN Risperdal (Risperidone) 0.25 Mg Tablet 0.75 Mg PO QHS Levothyroxine Sodium 25 Mcg Tablet 25 Mcg PO DAILYAC Zetia (Ezetimibe) 10 Mg Tablet 10 Mg PO DAILY Trazodone Hcl 50 Mg Tablet 25 Mg PO DAILY Celexa (Citalopram Hydrobromide) 20 Mg Tablet 20 Mg PO DAILY 24Hour Allergy (Cetirizine HCl) 10 Mg Tablet 10 Mg PO DAILY I have reviewed the current psychotropics carefully including drug interactions. Risk benefit ratio favors no change other than as noted in my dictated progress note. Diagnosis: Problems: (1) Anxiety disorder (2) Dementia, vascular, with delusions (3) Dementia, vascular, with depression (4) Dementia in Alzheimer's disease with depression (5) Dementia in Alzheimer's disease with delusions (6) Impulse control disorder MARIAN PENA MD Feb 23, 2018 22:26
[2018-02-24 05:40] VITALS: BP 124/75
[2018-02-24] MEDS: LEVOTHYROXINE 25 MCG TABLET. PO SCH (06:07)
[2018-02-24] MEDS: EZETIMIBE 10 MG TABLET PO SCH (07:50)
[2018-02-24] MEDS: CITALOPRAM 20 MG TABLET. PO SCH (07:51)
[2018-02-24] MEDS: LISINOPRIL 10 MG TABLET PO SCH (07:51)
[2018-02-24] MEDS: ACETAMINOPHEN 325 MG TABLET PO SCH ×2 (07:52→19:42)
[2018-02-24] MEDS: ASPIRIN 81 MG TAB.CHEW PO SCH (07:52)
[2018-02-24] MEDS: traZODone 50 MG TABLET. PO SCH (07:52)
[2018-02-24] MEDS: CETIRIZINE HCL 10 MG TABLET PO SCH (07:52)
[2018-02-24] MEDS: risperiDONE 0.25 MG TABLET. PO SCH (07:52)
[2018-02-24] MEDS: traMADol 50 MG TABLET PO PRN ×2 (07:59→21:39)
[2018-02-24 15:44] VITALS: BP 126/77
[2018-02-24] MEDS: INSULIN GLARGINE 300 UNITS/3 ML INSULN.PEN. SQ SCH (19:43)
--- NOTE | 2018-02-24 21:37 | PDOC ---
Exam Note: Michael Note: Please also refer to the separate dictated note~for this date of service dictated separately.~Patient seen individually. Discussed the patient with Nursing staff reviewed the chart.~Reviewed interim history and current functioning. Reviewed vital signs,~Labs/ Radiology~and current medications noted below. Continue current treatment with the changes noted in the dictated addendum note Assessment: Vital Signs: Vital Signs Date Time Temp Pulse Resp B/P (MAP) Pulse Ox O2 Delivery O2 Flow Rate FiO2 02/24/18 15:44 98.4 81 17 126/77 (93) 94 Room Air I&O Intake and Output 02/24/18 07:00 Intake Total 1080 ml Balance 1080 ml Intake Oral 1080 ml Labs: Laboratory Tests Test 02/24/18 07:09 02/24/18 19:17 Glucose (Fingerstick) 87 mg/dL (70-99) 147 mg/dL (70-99) H Current Medications: Meds: Current Medications Acetaminophen (Tylenol) 650 mg PRN Q6HRS PRN PO PAIN / TEMP Last administered on 02/22/18at 10:30; Start 02/21/18 at 21:45 Multi-Ingredient Ointment (Analgesic [place]) 1 hayley PRN QID PRN TP MUSCLE PAIN; Start 02/21/18 at 21:45 Al Hydroxide/Mg Hydroxide (Mylanta Plus Xs) 15 ml PRN AFTMEALHC PRN PO DYSPEPSIA Last administered on 02/22/18at 13:53; Start 02/21/18 at 21:45 Magnesium Hydroxide (Milk Of Magnesia) 2,400 mg PRN QHS PRN PO CONSTIPATION; Start 02/21/18 at 21:45 Bisacodyl (Dulcolax Tab) 5 mg PRN DAILY PRN PO CONSTIPATION; Start 02/22/18 at 02:00 Citalopram Hydrobromide (CeleXA) 20 mg DAILY PO Last administered on 02/24/18at 07:51; Start 02/22/18 at 09:00 Guaifenesin (Robitussin) 400 mg PRN Q4HRS PRN PO COUGH; Start 02/22/18 at 02: 00 Insulin Glargine (Lantus) 6 units HS SQ Last administered on 02/24/18at 19:43; Start 02/22/18 at 21:00 Albuterol/ Ipratropium (Duoneb) 3 ml PRN Q6HRS PRN NEB copd; Start 02/22/18 at 02:00 Lisinopril (Prinivil) 10 mg DAILY PO Last administered on 02/24/18at 07:51; Start 02/22/18 at 09:00 Nystatin (Mycostatin) 1 hayley PRN BID PRN TP redness/rash; Start 02/22/18 at 02: 00 Simethicone (Gas-X) 120 mg PRN Q6HRS PRN PO DYSPEPSIA; Start 02/22/18 at 02:00 Tramadol HCl (Ultram) 50 mg PRN Q6HRS PRN PO PAIN Last administered on at 07:59; Start 02/22/18 at 02:00 Alprazolam (Xanax) 1 mg PRN TID PRN PO ANXIETY / AGITATION; Start 02/22/18 at 02:00; Stop 02/23/18 at 16:38; Status DC Aspirin (Children'S Aspirin) 81 mg DAILYWBKFT PO Last administered on at 07:52; Start 02/22/18 at 08:00 Artificial Tears (Artificial Tears) 1 drop QID OU ; Start 02/22/18 at 09:00; Status Cancel Cetirizine HCl (ZyrTEC) 10 mg DAILY PO Last administered on 02/24/18at 07:52; Start 02/22/18 at 09:00 EZETIMIBE (Zetia) 10 mg DAILY PO Last administered on 02/24/18at 07:50; Start 02/22/18 at 09:00 Famotidine (Pepcid) 10 mg PRN DAILY PRN PO DYSPEPSIA Last administered on 02/22at 13:53; Start 02/22/18 at 02:00 Ketotifen Fumarate (Zaditor) 1 drop PRN TID PRN OU ITCHY EYES Last administered on 02/22/18at 16:49; Start 02/22/18 at 07:45 Levothyroxine Sodium (Synthroid) 25 mcg DAILY06 PO Last administered on at 06:07; Start 02/22/18 at 06:00 Loperamide HCl (Imodium) 2 mg PRN Q6HRS PRN PO DIARRHEA; Start 02/22/18 at 02: 00 Loperamide HCl (Imodium) 2 mg PRN 1X PRN PO DIARRHEA; Start 02/22/18 at 02:00 ; Stop 02/22/18 at 10:04; Status DC Risperidone (RisperDAL) 0.75 mg DAILY PO Last administered on 02/24/18at 07:52; Start 02/22/18 at 09:00 Non-Formulary Medication (Risperidone (Risperdal)) 1 mg QHS PO ; Start at 21:00; Stop 02/22/18 at 21:00; Status DC Trazodone HCl (Desyrel) 50 mg DAILY PO Last administered on 02/22/18at 10:29; Start 02/22/18 at 09:00; Stop 02/22/18 at 10:04; Status DC Artificial Tears (Refresh Classic) 1 drop QID OU ; Start 02/22/18 at 09:00; Stop 02/22/18 at 10:04; Status DC Acetaminophen (Tylenol) 650 mg BID PO Last administered on 02/24/18at 19:42; Start 02/22/18 at 21:00 Loperamide HCl (Imodium) 4 mg PRN DAILY PRN PO DIARRHEA Last administered on at 10:48; Start 02/22/18 at 10:15 Artificial Tears (Refresh Classic) 1 drop PRN QID PRN OU DRY EYE; Start at 10:15 Trazodone HCl (Desyrel) 25 mg DAILY PO Last administered on 02/24/18at 07:52; Start 02/23/18 at 09:00 Olanzapine (ZyPREXA ZYDIS) 2.5 mg PRN Q2HR PRN PO PSYCHOSIS; Start 02/23/18 at 16:45 Active Scripts Active Reported Nystatin 15 Gm Oint...g. 1 Hayley TP PRN BID PRN Margo-Tussin (Guaifenesin) 100 Mg/5 Ml Liquid 20 Ml PO PRN Q4HRS PRN Tylenol (Acetaminophen) 325 Mg Tablet 2 Tab PO BID [place] (Ketotifen Fumarate) 10 Ml Drops 1 Drop EACHEYE PRN TID PRN Lisinopril 10 Mg Tablet 10 Mg PO DAILY Basaglar Kwikpen U-100 (Insulin Glargine,Hum.rec.anlog) 100 Unit/1 Ml Insuln.pen 6 Unit SQ HS Duoneb 0.5-3(2.5) Mg/3 Ml (Albuterol/Ipratropium) 3 Ml Ampul.neb 3 Ml NEB PRN Q6HRS PRN Alprazolam 1 Mg Tablet 1 Mg PO PRN TID PRN Simethicone 80 Mg Tab.chew 125 Mg PO PRN Q6HRS PRN Aspirin 81 Mg Tab.chew 81 Mg PO DAILY Loperamide (Loperamide Hcl) 2 Mg Tablet 4 Mg PO PRN DAILY PRN Anti-Diarrhea (Loperamide Hcl) 2 Mg Tablet 2 Mg PO PRN Q6HRS PRN Tramadol Hcl (Tramadol HCl) 50 Mg Tablet 50 Mg PO PRN Q6HRS PRN Refresh Optive Eye Drops (Carboxymethylcellulos/Glycerin) 15 Ml Drops 1 Drop EACHEYE PRN QID PRN Famotidine 20 Mg Tablet 10 Mg PO PRN DAILY PRN Dulcolax (Bisacodyl) 5 Mg Tablet.dr 5 Mg PO PRN DAILY PRN Risperdal (Risperidone) 0.25 Mg Tablet 0.75 Mg PO QHS Levothyroxine Sodium 25 Mcg Tablet 25 Mcg PO DAILYAC Zetia (Ezetimibe) 10 Mg Tablet 10 Mg PO DAILY Trazodone Hcl 50 Mg Tablet 25 Mg PO DAILY Celexa (Citalopram Hydrobromide) 20 Mg Tablet 20 Mg PO DAILY 24Hour Allergy (Cetirizine HCl) 10 Mg Tablet 10 Mg PO DAILY I have reviewed the current psychotropics carefully including drug interactions. Risk benefit ratio favors no change other than as noted in my dictated progress note. Diagnosis: Problems: (1) Anxiety disorder (2) Dementia, vascular, with delusions (3) Dementia, vascular, with depression (4) Dementia in Alzheimer's disease with depression (5) Dementia in Alzheimer's disease with delusions (6) Impulse control disorder MARIAN PENA MD Feb 24, 2018 21:37
[2018-02-25 05:36] VITALS: BP 119/75
[2018-02-25] MEDS: LEVOTHYROXINE 25 MCG TABLET. PO SCH (05:57)
[2018-02-25] MEDS: CITALOPRAM 20 MG TABLET. PO SCH (07:46)
[2018-02-25] MEDS: traZODone 50 MG TABLET. PO SCH (07:47)
[2018-02-25] MEDS: ACETAMINOPHEN 325 MG TABLET PO SCH ×2 (07:47→19:45)
[2018-02-25] MEDS: EZETIMIBE 10 MG TABLET PO SCH (07:47)
[2018-02-25] MEDS: ASPIRIN 81 MG TAB.CHEW PO SCH (07:47)
[2018-02-25] MEDS: risperiDONE 0.25 MG TABLET. PO SCH (07:47)
[2018-02-25] MEDS: CETIRIZINE HCL 10 MG TABLET PO SCH (07:47)
[2018-02-25] MEDS: LISINOPRIL 10 MG TABLET PO SCH (07:48)
--- NOTE | 2018-02-25 14:58 | PN ---
DATE: 02/23/2018 This is a late entry 02/23/2018 covers elements not covered in my initial note. SUBJECTIVE: I met with the patient in the evening. The patient slept 7 hours previous night. She is oriented to herself, anxious, wandering, compliant with medications. REVIEW OF SYSTEMS: No CV, , pulmonary, eye, ENT system symptoms on review. Reliability poor. MENTAL STATUS EXAM: Oriented to herself. Insight, judgment, recent and remote memory, attention, concentration, fund of knowledge poor, consistent with her diagnosis. She is somewhat anxious, paranoid, suspicious, quite confused, but pleasant, verbal, smiling as I met with her. LABORATORY DATA: Reviewed. IMPRESSION: Major neurocognitive disorder, Alzheimer, vascular with delusion, depression, behavioral disturbance; anxiety disorder, unspecified; impulse control disorder, unspecified. PLAN: No change from initial note, start Zyprexa 2.5 mg q. 2 hours p.r.n. psychosis, agitation, max 7.5 mg in 24 hours. Maintain Celexa, trazodone, Risperdal along with Xanax p.r.n. for now. Consider Depakote as a mood stabilizer if needed. MARIAN PENA MD DR: LILIA/geor[place] JOB#: [id number] / [id number]
[2018-02-25 15:34] VITALS: BP 115/76
[2018-02-25] MEDS: traMADol 50 MG TABLET PO PRN (17:40)
[2018-02-25] MEDS: INSULIN GLARGINE 300 UNITS/3 ML INSULN.PEN. SQ SCH (19:46)
[2018-02-25] MEDS: NYSTATIN TOPICAL POWDER 15GM BOTTLE. TP SCH (19:47)
--- NOTE | 2018-02-25 22:24 | PN ---
DATE: 02/24/2018 This is a late entry for 02/24/2018 and covers elements not covered in my initial note. SUBJECTIVE: I met with the patient in the evening. The patient slept 9 hours previous night. The patient remains confused, somewhat withdrawn, complained of pain, received tramadol for this, somewhat isolated. REVIEW OF SYSTEMS: No CV, , pulmonary, eye, ENT system symptoms on review. Reliability poor. MENTAL STATUS EXAM: Oriented to herself. Insight, judgment, recent and remote memory, attention, concentration, fund of knowledge poor, consistent with her diagnosis as mentioned in my initial note. PLAN: No change from initial note. Maintain Celexa, trazodone, Risperdal, Zyprexa p.r.n. MAN Nura PENA MD DR: LILIA/[place] JOB#: [id number] / [id number]
[2018-02-26] MEDS: LEVOTHYROXINE 25 MCG TABLET. PO SCH (05:15)
[2018-02-26 05:33] VITALS: BP 117/77
[2018-02-26] MEDS: traZODone 50 MG TABLET. PO SCH (07:50)
[2018-02-26] MEDS: risperiDONE 0.25 MG TABLET. PO SCH (07:51)
[2018-02-26] MEDS: ACETAMINOPHEN 325 MG TABLET PO SCH ×2 (07:51→20:35)
[2018-02-26] MEDS: LISINOPRIL 10 MG TABLET PO SCH (07:51)
[2018-02-26] MEDS: ASPIRIN 81 MG TAB.CHEW PO SCH (07:52)
[2018-02-26] MEDS: EZETIMIBE 10 MG TABLET PO SCH (07:52)
[2018-02-26] MEDS: CITALOPRAM 20 MG TABLET. PO SCH (07:52)
[2018-02-26] MEDS: CETIRIZINE HCL 10 MG TABLET PO SCH (07:52)
[2018-02-26] MEDS: busPIRone 5 MG TABLET. PO SCH ×2 (07:57→16:24)
[2018-02-26] MEDS: NYSTATIN TOPICAL POWDER 15GM BOTTLE. TP SCH ×2 (08:00→20:42)
--- NOTE | 2018-02-26 09:59 | PDOC ---
Exam Note: Michael Note: Late entry for DOS 02/25/2018. Please also refer to the separate dictated note~ for this date of service dictated separately.~Patient seen individually. Discussed the patient with Nursing staff reviewed the chart.~Reviewed interim history and current functioning. Reviewed vital signs,~Labs/ Radiology~and current medications noted below. Continue current treatment with the changes noted in the dictated addendum note Assessment: Vital Signs: VS - Last 72 Hours, by Label Date Time Temp Pulse Resp B/P (MAP) Pulse Ox O2 Delivery O2 Flow Rate FiO2 02/26/18 07:51 80 117/77 02/26/18 05:33 97.2 80 20 117/77 (90) 98 02/25/18 19:18 96 02/25/18 15:34 97.2 90 19 115/76 (89) 96 02/25/18 07:48 82 119/75 02/25/18 05:36 97.2 82 18 119/75 (90) 94 02/24/18 22:45 16 02/24/18 21:39 16 94 02/24/18 15:44 98.4 81 17 126/77 (93) 94 Room Air 02/24/18 07:51 83 124/75 02/24/18 05:40 97.0 83 16 124/75 (91) 96 Room Air 02/23/18 15:52 97.8 83 19 111/70 (84) 96 Room Air Vital Signs Date Time Temp Pulse Resp B/P (MAP) Pulse Ox O2 Delivery O2 Flow Rate FiO2 02/26/18 07:51 80 117/77 02/26/18 05:33 97.2 20 98 02/24/18 15:44 Room Air I&O Intake and Output 02/26/18 07:00 Intake Total 1180 ml Balance 1180 ml Intake Oral 1180 ml Labs: Laboratory Tests Test 02/25/18 19:17 02/26/18 07:37 Glucose (Fingerstick) 160 mg/dL (70-99) H 81 mg/dL (70-99) Current Medications: Meds: Current Medications Acetaminophen (Tylenol) 650 mg PRN Q6HRS PRN PO PAIN / TEMP Last administered on 02/22/18at 10:30; Start 02/21/18 at 21:45 Multi-Ingredient Ointment (Analgesic [place]) 1 hayley PRN QID PRN TP MUSCLE PAIN; Start 02/21/18 at 21:45 Al Hydroxide/Mg Hydroxide (Mylanta Plus Xs) 15 ml PRN AFTMEALHC PRN PO DYSPEPSIA Last administered on 02/22/18at 13:53; Start 02/21/18 at 21:45 Magnesium Hydroxide (Milk Of Magnesia) 2,400 mg PRN QHS PRN PO CONSTIPATION; Start 02/21/18 at 21:45 Bisacodyl (Dulcolax Tab) 5 mg PRN DAILY PRN PO CONSTIPATION; Start 02/22/18 at 02:00 Citalopram Hydrobromide (CeleXA) 20 mg DAILY PO Last administered on 02/26/18at 07:52; Start 02/22/18 at 09:00 Guaifenesin (Robitussin) 400 mg PRN Q4HRS PRN PO COUGH; Start 02/22/18 at 02: 00 Insulin Glargine (Lantus) 6 units HS SQ Last administered on 02/25/18at 19:46; Start 02/22/18 at 21:00 Albuterol/ Ipratropium (Duoneb) 3 ml PRN Q6HRS PRN NEB copd; Start 02/22/18 at 02:00 Lisinopril (Prinivil) 10 mg DAILY PO Last administered on 02/26/18at 07:51; Start 02/22/18 at 09:00 Nystatin (Mycostatin) 1 hayley PRN BID PRN TP redness/rash; Start 02/22/18 at 02: 00 Simethicone (Gas-X) 120 mg PRN Q6HRS PRN PO DYSPEPSIA; Start 02/22/18 at 02:00 Tramadol HCl (Ultram) 50 mg PRN Q6HRS PRN PO PAIN Last administered on at 17:40; Start 02/22/18 at 02:00 Alprazolam (Xanax) 1 mg PRN TID PRN PO ANXIETY / AGITATION; Start 02/22/18 at 02:00; Stop 02/23/18 at 16:38; Status DC Aspirin (Children'S Aspirin) 81 mg DAILYWBKFT PO Last administered on at 07:52; Start 02/22/18 at 08:00 Artificial Tears (Artificial Tears) 1 drop QID OU ; Start 02/22/18 at 09:00; Status Cancel Cetirizine HCl (ZyrTEC) 10 mg DAILY PO Last administered on 02/26/18at 07:52; Start 02/22/18 at 09:00 EZETIMIBE (Zetia) 10 mg DAILY PO Last administered on 02/26/18at 07:52; Start 02/22/18 at 09:00 Famotidine (Pepcid) 10 mg PRN DAILY PRN PO DYSPEPSIA Last administered on 02/22at 13:53; Start 02/22/18 at 02:00 Ketotifen Fumarate (Zaditor) 1 drop PRN TID PRN OU ITCHY EYES Last administered on 02/22/18at 16:49; Start 02/22/18 at 07:45 Levothyroxine Sodium (Synthroid) 25 mcg DAILY06 PO Last administered on at 05:15; Start 02/22/18 at 06:00 Loperamide HCl (Imodium) 2 mg PRN Q6HRS PRN PO DIARRHEA; Start 02/22/18 at 02: 00 Loperamide HCl (Imodium) 2 mg PRN 1X PRN PO DIARRHEA; Start 02/22/18 at 02:00 ; Stop 02/22/18 at 10:04; Status DC Risperidone (RisperDAL) 0.75 mg DAILY PO Last administered on 02/26/18at 07:51; Start 02/22/18 at 09:00 Non-Formulary Medication (Risperidone (Risperdal)) 1 mg QHS PO ; Start at 21:00; Stop 02/22/18 at 21:00; Status DC Trazodone HCl (Desyrel) 50 mg DAILY PO Last administered on 02/22/18at 10:29; Start 02/22/18 at 09:00; Stop 02/22/18 at 10:04; Status DC Artificial Tears (Refresh Classic) 1 drop QID OU ; Start 02/22/18 at 09:00; Stop 02/22/18 at 10:04; Status DC Acetaminophen (Tylenol) 650 mg BID PO Last administered on 02/26/18at 07:51; Start 02/22/18 at 21:00 Loperamide HCl (Imodium) 4 mg PRN DAILY PRN PO DIARRHEA Last administered on at 10:48; Start 02/22/18 at 10:15 Artificial Tears (Refresh Classic) 1 drop PRN QID PRN OU DRY EYE; Start at 10:15 Trazodone HCl (Desyrel) 25 mg DAILY PO Last administered on 02/26/18at 07:50; Start 02/23/18 at 09:00 Olanzapine (ZyPREXA ZYDIS) 2.5 mg PRN Q2HR PRN PO PSYCHOSIS; Start 02/23/18 at 16:45 Nystatin (Nystop) 1 hayley BID TP Last administered on 02/26/18at 08:00; Start 02/25/18 at 21:00 Buspirone HCl (Buspar) 5 mg BID@0900,1700 PO Last administered on 02/26/18at 07: 57; Start 02/26/18 at 09:00 Active Scripts Active Reported Nystatin 15 Gm Oint...g. 1 [place] TP PRN BID PRN Margo-Tussin (Guaifenesin) 100 Mg/5 Ml Liquid 20 Ml PO PRN Q4HRS PRN Tylenol (Acetaminophen) 325 Mg Tablet 2 Tab PO BID [place] (Ketotifen Fumarate) 10 Ml Drops 1 Drop EACHEYE PRN TID PRN Lisinopril 10 Mg Tablet 10 Mg PO DAILY Basaglar Kwikpen U-100 (Insulin Glargine,Hum.rec.anlog) 100 Unit/1 Ml Insuln.pen 6 Unit SQ HS Duoneb 0.5-3(2.5) Mg/3 Ml (Albuterol/Ipratropium) 3 Ml Ampul.neb 3 Ml NEB PRN Q6HRS PRN Alprazolam 1 Mg Tablet 1 Mg PO PRN TID PRN Simethicone 80 Mg Tab.chew 125 Mg PO PRN Q6HRS PRN Aspirin 81 Mg Tab.chew 81 Mg PO DAILY Loperamide (Loperamide Hcl) 2 Mg Tablet 4 Mg PO PRN DAILY PRN Anti-Diarrhea (Loperamide Hcl) 2 Mg Tablet 2 Mg PO PRN Q6HRS PRN Tramadol Hcl (Tramadol HCl) 50 Mg Tablet 50 Mg PO PRN Q6HRS PRN Refresh Optive Eye Drops (Carboxymethylcellulos/Glycerin) 15 Ml Drops 1 Drop EACHEYE PRN QID PRN Famotidine 20 Mg Tablet 10 Mg PO PRN DAILY PRN Dulcolax (Bisacodyl) 5 Mg Tablet.dr 5 Mg PO PRN DAILY PRN Risperdal (Risperidone) 0.25 Mg Tablet 0.75 Mg PO QHS Levothyroxine Sodium 25 Mcg Tablet 25 Mcg PO DAILYAC Zetia (Ezetimibe) 10 Mg Tablet 10 Mg PO DAILY Trazodone Hcl 50 Mg Tablet 25 Mg PO DAILY Celexa (Citalopram Hydrobromide) 20 Mg Tablet 20 Mg PO DAILY 24Hour Allergy (Cetirizine HCl) 10 Mg Tablet 10 Mg PO DAILY I have reviewed the current psychotropics carefully including drug interactions. Risk benefit ratio favors no change other than as noted in my dictated progress note. Diagnosis: Problems: (1) Anxiety disorder (2) Dementia, vascular, with delusions (3) Dementia, vascular, with depression (4) Dementia in Alzheimer's disease with depression (5) Dementia in Alzheimer's disease with delusions (6) Impulse control disorder MARIAN PENA MD Feb 26, 2018 09:59
[2018-02-26] MEDS: traMADol 50 MG TABLET PO PRN (15:59)
[2018-02-26 16:03] VITALS: BP 121/76
[2018-02-26] MEDS: INSULIN GLARGINE 300 UNITS/3 ML INSULN.PEN. SQ SCH (20:42)
--- NOTE | 2018-02-26 22:37 | PDOC ---
Exam Note: Michael Note: Please also refer to the separate dictated note~for this date of service dictated separately.~Patient seen individually. Discussed the patient with Nursing staff reviewed the chart.~Reviewed interim history and current functioning. Reviewed vital signs,~Labs/ Radiology~and current medications noted below. Continue current treatment with the changes noted in the dictated addendum note Assessment: Vital Signs: Vital Signs Date Time Temp Pulse Resp B/P (MAP) Pulse Ox O2 Delivery O2 Flow Rate FiO2 02/26/18 17:00 18 98 Room Air 02/26/18 16:03 97.8 82 121/76 (91) I&O Intake and Output 02/26/18 07:00 Intake Total 1180 ml Balance 1180 ml Intake Oral 1180 ml Labs: Laboratory Tests Test 02/26/18 07:37 02/26/18 20:01 Glucose (Fingerstick) 81 mg/dL (70-99) 101 mg/dL (70-99) H Current Medications: Meds: Current Medications Acetaminophen (Tylenol) 650 mg PRN Q6HRS PRN PO PAIN / TEMP Last administered on 02/22/18at 10:30; Start 02/21/18 at 21:45 Multi-Ingredient Ointment (Analgesic [place]) 1 hayley PRN QID PRN TP MUSCLE PAIN; Start 02/21/18 at 21:45 Al Hydroxide/Mg Hydroxide (Mylanta Plus Xs) 15 ml PRN AFTMEALHC PRN PO DYSPEPSIA Last administered on 02/22/18at 13:53; Start 02/21/18 at 21:45 Magnesium Hydroxide (Milk Of Magnesia) 2,400 mg PRN QHS PRN PO CONSTIPATION; Start 02/21/18 at 21:45 Bisacodyl (Dulcolax Tab) 5 mg PRN DAILY PRN PO CONSTIPATION; Start 02/22/18 at 02:00 Citalopram Hydrobromide (CeleXA) 20 mg DAILY PO Last administered on 02/26/18at 07:52; Start 02/22/18 at 09:00 Guaifenesin (Robitussin) 400 mg PRN Q4HRS PRN PO COUGH; Start 02/22/18 at 02: 00 Insulin Glargine (Lantus) 6 units HS SQ Last administered on 02/26/18at 20:42; Start 02/22/18 at 21:00 Albuterol/ Ipratropium (Duoneb) 3 ml PRN Q6HRS PRN NEB copd; Start 02/22/18 at 02:00 Lisinopril (Prinivil) 10 mg DAILY PO Last administered on 02/26/18at 07:51; Start 02/22/18 at 09:00 Nystatin (Mycostatin) 1 hayley PRN BID PRN TP redness/rash; Start 02/22/18 at 02: 00 Simethicone (Gas-X) 120 mg PRN Q6HRS PRN PO DYSPEPSIA; Start 02/22/18 at 02:00 Tramadol HCl (Ultram) 50 mg PRN Q6HRS PRN PO PAIN Last administered on at 15:59; Start 02/22/18 at 02:00 Alprazolam (Xanax) 1 mg PRN TID PRN PO ANXIETY / AGITATION; Start 02/22/18 at 02:00; Stop 02/23/18 at 16:38; Status DC Aspirin (Children'S Aspirin) 81 mg DAILYWBKFT PO Last administered on at 07:52; Start 02/22/18 at 08:00 Artificial Tears (Artificial Tears) 1 drop QID OU ; Start 02/22/18 at 09:00; Status Cancel Cetirizine HCl (ZyrTEC) 10 mg DAILY PO Last administered on 02/26/18at 07:52; Start 02/22/18 at 09:00 EZETIMIBE (Zetia) 10 mg DAILY PO Last administered on 02/26/18at 07:52; Start 02/22/18 at 09:00 Famotidine (Pepcid) 10 mg PRN DAILY PRN PO DYSPEPSIA Last administered on 02/22at 13:53; Start 02/22/18 at 02:00 Ketotifen Fumarate (Zaditor) 1 drop PRN TID PRN OU ITCHY EYES Last administered on 02/22/18at 16:49; Start 02/22/18 at 07:45 Levothyroxine Sodium (Synthroid) 25 mcg DAILY06 PO Last administered on at 05:15; Start 02/22/18 at 06:00 Loperamide HCl (Imodium) 2 mg PRN Q6HRS PRN PO DIARRHEA; Start 02/22/18 at 02: 00 Loperamide HCl (Imodium) 2 mg PRN 1X PRN PO DIARRHEA; Start 02/22/18 at 02:00 ; Stop 02/22/18 at 10:04; Status DC Risperidone (RisperDAL) 0.75 mg DAILY PO Last administered on 02/26/18at 07:51; Start 02/22/18 at 09:00 Non-Formulary Medication (Risperidone (Risperdal)) 1 mg QHS PO ; Start at 21:00; Stop 02/22/18 at 21:00; Status DC Trazodone HCl (Desyrel) 50 mg DAILY PO Last administered on 02/22/18at 10:29; Start 02/22/18 at 09:00; Stop 02/22/18 at 10:04; Status DC Artificial Tears (Refresh Classic) 1 drop QID OU ; Start 02/22/18 at 09:00; Stop 02/22/18 at 10:04; Status DC Acetaminophen (Tylenol) 650 mg BID PO Last administered on 02/26/18at 20:35; Start 02/22/18 at 21:00 Loperamide HCl (Imodium) 4 mg PRN DAILY PRN PO DIARRHEA Last administered on at 10:48; Start 02/22/18 at 10:15 Artificial Tears (Refresh Classic) 1 drop PRN QID PRN OU DRY EYE; Start at 10:15 Trazodone HCl (Desyrel) 25 mg DAILY PO Last administered on 02/26/18at 07:50; Start 02/23/18 at 09:00 Olanzapine (ZyPREXA ZYDIS) 2.5 mg PRN Q2HR PRN PO PSYCHOSIS; Start 02/23/18 at 16:45 Nystatin (Nystop) 1 hayley BID TP Last administered on 02/26/18at 20:42; Start 02/25/18 at 21:00 Buspirone HCl (Buspar) 5 mg BID@0900,1700 PO Last administered on 02/26/18at 16: 24; Start 02/26/18 at 09:00 Active Scripts Active Reported Nystatin 15 Gm Oint...g. 1 Hayley TP PRN BID PRN Margo-Tussin (Guaifenesin) 100 Mg/5 Ml Liquid 20 Ml PO PRN Q4HRS PRN Tylenol (Acetaminophen) 325 Mg Tablet 2 Tab PO BID [place] (Ketotifen Fumarate) 10 Ml Drops 1 Drop EACHEYE PRN TID PRN Lisinopril 10 Mg Tablet 10 Mg PO DAILY Basaglar Kwikpen U-100 (Insulin Glargine,Hum.rec.anlog) 100 Unit/1 Ml Insuln.pen 6 Unit SQ HS Duoneb 0.5-3(2.5) Mg/3 Ml (Albuterol/Ipratropium) 3 Ml Ampul.neb 3 Ml NEB PRN Q6HRS PRN Alprazolam 1 Mg Tablet 1 Mg PO PRN TID PRN Simethicone 80 Mg Tab.chew 125 Mg PO PRN Q6HRS PRN Aspirin 81 Mg Tab.chew 81 Mg PO DAILY Loperamide (Loperamide Hcl) 2 Mg Tablet 4 Mg PO PRN DAILY PRN Anti-Diarrhea (Loperamide Hcl) 2 Mg Tablet 2 Mg PO PRN Q6HRS PRN Tramadol Hcl (Tramadol HCl) 50 Mg Tablet 50 Mg PO PRN Q6HRS PRN Refresh Optive Eye Drops (Carboxymethylcellulos/Glycerin) 15 Ml Drops 1 Drop EACHEYE PRN QID PRN Famotidine 20 Mg Tablet 10 Mg PO PRN DAILY PRN Dulcolax (Bisacodyl) 5 Mg Tablet.dr 5 Mg PO PRN DAILY PRN Risperdal (Risperidone) 0.25 Mg Tablet 0.75 Mg PO QHS Levothyroxine Sodium 25 Mcg Tablet 25 Mcg PO DAILYAC Zetia (Ezetimibe) 10 Mg Tablet 10 Mg PO DAILY Trazodone Hcl 50 Mg Tablet 25 Mg PO DAILY Celexa (Citalopram Hydrobromide) 20 Mg Tablet 20 Mg PO DAILY 24Hour Allergy (Cetirizine HCl) 10 Mg Tablet 10 Mg PO DAILY I have reviewed the current psychotropics carefully including drug interactions. Risk benefit ratio favors no change other than as noted in my dictated progress note. Diagnosis: Problems: (1) Anxiety disorder (2) Dementia, vascular, with delusions (3) Dementia, vascular, with depression (4) Dementia in Alzheimer's disease with depression (5) Dementia in Alzheimer's disease with delusions (6) Impulse control disorder MARIAN PENA MD Feb 26, 2018 22:37
--- NOTE | 2018-02-26 23:17 | PN ---
DATE: 02/25/2018 This is a late entry for 02/25/2018 covers elements not covered in my initial note. SUBJECTIVE: I met with the patient in the evening. The patient slept 7 hours previous night. She remains anxious, certainly confused with short-term memory deficits, but not aggressive. REVIEW OF SYSTEMS: No CV, , pulmonary, eye, ENT system symptoms on review. Reliability poor. She is, otherwise, pleasant, smiling as I met with her. MENTAL STATUS EXAM: Oriented to herself. Insight, judgment, recent and remote memory, attention, concentration, fund of knowledge poor, consistent with her diagnosis mentioned in my initial note. PLAN: No change from initial note, but we will go ahead and start BuSpar 5 mg twice a day 09:00 a.m., 05:00 p.m. Maintain Celexa, trazodone, Risperdal along with Zyprexa p.r.n., unchanged from initial note. MARIAN PENA MD DR: LILIA/[place] JOB#: [id number] / [id number]
[2018-02-27 05:53] VITALS: BP 101/66
[2018-02-27] MEDS: LEVOTHYROXINE 25 MCG TABLET. PO SCH (05:55)
[2018-02-27] MEDS: LISINOPRIL 10 MG TABLET PO SCH (08:15)
[2018-02-27] MEDS: CETIRIZINE HCL 10 MG TABLET PO SCH (08:15)
[2018-02-27] MEDS: EZETIMIBE 10 MG TABLET PO SCH (08:15)
[2018-02-27] MEDS: ACETAMINOPHEN 325 MG TABLET PO SCH ×2 (08:15→19:45)
[2018-02-27] MEDS: busPIRone 5 MG TABLET. PO SCH ×2 (08:15→16:51)
[2018-02-27] MEDS: ASPIRIN 81 MG TAB.CHEW PO SCH (08:16)
[2018-02-27] MEDS: risperiDONE 0.25 MG TABLET. PO SCH (08:16)
[2018-02-27] MEDS: CITALOPRAM 20 MG TABLET. PO SCH (08:16)
[2018-02-27] MEDS: traZODone 50 MG TABLET. PO SCH (08:16)
[2018-02-27] MEDS: NYSTATIN TOPICAL POWDER 15GM BOTTLE. TP SCH ×2 (08:18→20:12)
[2018-02-27] MEDS: traMADol 50 MG TABLET PO PRN ×2 (08:59→15:40)
[2018-02-27 16:08] VITALS: BP 106/69
[2018-02-27] MEDS: LIDOCAINE (700MG/PATCH) PATCH. TD SCH ×2 (16:51→20:13)
[2018-02-27] MEDS: INSULIN GLARGINE 300 UNITS/3 ML INSULN.PEN. SQ SCH (19:47)
--- NOTE | 2018-02-27 21:46 | PN ---
DATE: 02/26/2018 PSYCHIATRIC PROGRESS NOTE This late entry 02/26/2018 covers elements not covered in my initial note. SUBJECTIVE: I met with the patient in the evening. The patient slept 8-1/4 hours previous night. She has been somewhat anxious, more so in the evening, but compliant. She has not been aggressive during the day. REVIEW OF SYSTEMS: Positive for some neck pain. No CV, , pulmonary, eye, ENT system symptoms on review. Reliability poor. MENTAL STATUS EXAM: Oriented to herself. Insight, judgment, recent and remote memory, attention, concentration, fund of knowledge poor, consistent with her diagnosis mentioned in my initial note. PLAN: No change from initial note including the BuSpar that was added 5 mg twice a day. We may need to increase this in due course. Rest unchanged. MAN Nura PENA MD DR: LILIA/[place] JOB#: [id number] / [id number]
--- NOTE | 2018-02-27 22:34 | PDOC ---
Exam Note: Michael Note: Please also refer to the separate dictated note~for this date of service dictated separately.~Patient seen individually. Discussed the patient with Nursing staff reviewed the chart.~Reviewed interim history and current functioning. Reviewed vital signs,~Labs/ Radiology~and current medications noted below. Continue current treatment with the changes noted in the dictated addendum note Assessment: Vital Signs: Vital Signs Date Time Temp Pulse Resp B/P (MAP) Pulse Ox O2 Delivery O2 Flow Rate FiO2 02/27/18 16:52 16 99 Room Air 02/27/18 16:08 98.6 83 106/69 (81) I&O Intake and Output 02/27/18 07:00 Intake Total 1220 ml Balance 1220 ml Intake Oral 1220 ml Labs: Laboratory Tests Test 02/27/18 06:25 02/27/18 07:29 02/27/18 19:20 Erythrocyte Sedimentation Rate 11 (0-25) C-Reactive Protein 1.2 mg/L (0-3.3) Glucose (Fingerstick) 84 mg/dL (70-99) 150 mg/dL (70-99) H Current Medications: Meds: Current Medications Acetaminophen (Tylenol) 650 mg PRN Q6HRS PRN PO PAIN / TEMP Last administered on 02/22/18at 10:30; Start 02/21/18 at 21:45 Multi-Ingredient Ointment (Analgesic [place]) 1 hayley PRN QID PRN TP MUSCLE PAIN; Start 02/21/18 at 21:45 Al Hydroxide/Mg Hydroxide (Mylanta Plus Xs) 15 ml PRN AFTMEALHC PRN PO DYSPEPSIA Last administered on 02/22/18at 13:53; Start 02/21/18 at 21:45 Magnesium Hydroxide (Milk Of Magnesia) 2,400 mg PRN QHS PRN PO CONSTIPATION; Start 02/21/18 at 21:45 Bisacodyl (Dulcolax Tab) 5 mg PRN DAILY PRN PO CONSTIPATION; Start 02/22/18 at 02:00 Citalopram Hydrobromide (CeleXA) 20 mg DAILY PO Last administered on 02/27/18at 08:16; Start 02/22/18 at 09:00; Stop 02/27/18 at 17:06; Status DC Guaifenesin (Robitussin) 400 mg PRN Q4HRS PRN PO COUGH; Start 02/22/18 at 02: 00 Insulin Glargine (Lantus) 6 units HS SQ Last administered on 02/27/18 19:47; Start 02/22/18 at 21:00 Albuterol/ Ipratropium (Duoneb) 3 ml PRN Q6HRS PRN NEB copd; Start 02/22/18 at 02:00 Lisinopril (Prinivil) 10 mg DAILY PO Last administered on 02/27/18 08:15; Start 02/22/18 at 09:00 Nystatin (Mycostatin) 1 hayley PRN BID PRN TP redness/rash; Start 02/22/18 at 02: 00 Simethicone (Gas-X) 120 mg PRN Q6HRS PRN PO DYSPEPSIA; Start 02/22/18 at 02:00 Tramadol HCl (Ultram) 50 mg PRN Q6HRS PRN PO PAIN Last administered on 15:40; Start 02/22/18 at 02:00 Alprazolam (Xanax) 1 mg PRN TID PRN PO ANXIETY / AGITATION; Start 02/22/18 at 02:00; Stop 02/23/18 at 16:38; Status DC Aspirin (Children'S Aspirin) 81 mg DAILYWBKFT PO Last administered on at 08:16; Start 02/22/18 at 08:00 Artificial Tears (Artificial Tears) 1 drop QID OU ; Start 02/22/18 at 09:00; Status Cancel Cetirizine HCl (ZyrTEC) 10 mg DAILY PO Last administered on 02/27/18at 08:15; Start 02/22/18 at 09:00 EZETIMIBE (Zetia) 10 mg DAILY PO Last administered on 02/27/18 08:15; Start 02/22/18 at 09:00 Famotidine (Pepcid) 10 mg PRN DAILY PRN PO DYSPEPSIA Last administered on 02/22at 13:53; Start 02/22/18 at 02:00 Ketotifen Fumarate (Zaditor) 1 drop PRN TID PRN OU ITCHY EYES Last administered on 02/22/18at 16:49; Start 02/22/18 at 07:45 Levothyroxine Sodium (Synthroid) 25 mcg DAILY06 PO Last administered on at 05:55; Start 02/22/18 at 06:00 Loperamide HCl (Imodium) 2 mg PRN Q6HRS PRN PO DIARRHEA; Start 02/22/18 at 02: 00 Loperamide HCl (Imodium) 2 mg PRN 1X PRN PO DIARRHEA; Start 02/22/18 at 02:00 ; Stop 02/22/18 at 10:04; Status DC Risperidone (RisperDAL) 0.75 mg DAILY PO Last administered on 02/27/18at 08:16; Start 02/22/18 at 09:00 Non-Formulary Medication (Risperidone (Risperdal)) 1 mg QHS PO ; Start at 21:00; Stop 02/22/18 at 21:00; Status DC Trazodone HCl (Desyrel) 50 mg DAILY PO Last administered on 02/22/18at 10:29; Start 02/22/18 at 09:00; Stop 02/22/18 at 10:04; Status DC Artificial Tears (Refresh [place]) 1 drop QID OU ; Start 02/22/18 at 09:00; Stop 02/22/18 at 10:04; Status DC Acetaminophen (Tylenol) 650 mg BID PO Last administered on 02/27/18at 19:45; Start 02/22/18 at 21:00 Loperamide HCl (Imodium) 4 mg PRN DAILY PRN PO DIARRHEA Last administered on at 10:48; Start 02/22/18 at 10:15 Artificial Tears (Refresh [place]) 1 drop PRN QID PRN OU DRY EYE; Start at 10:15 Trazodone HCl (Desyrel) 25 mg DAILY PO Last administered on 02/27/18at 08:16; Start 02/23/18 at 09:00 Olanzapine (ZyPREXA ZYDIS) 2.5 mg PRN Q2HR PRN PO PSYCHOSIS; Start 02/23/18 at 16:45 Nystatin (Nystop) 1 haylye BID TP Last administered on 02/27/18at 20:12; Start 02/25/18 at 21:00 Buspirone HCl (Buspar) 5 mg BID@0900,1700 PO Last administered on 02/27/18at 16: 51; Start 02/26/18 at 09:00 Lidocaine (Lidoderm) 2 patch DAILY TD Last administered on 02/27/18at 20:13; Start 02/27/18 at 16:00 Sertraline HCl (Zoloft) 50 mg DAILY PO ; Start 02/28/18 at 09:00 Active Scripts Active Reported Nystatin 15 Gm Oint...g. 1 Hayley TP PRN BID PRN Margo-Tussin (Guaifenesin) 100 Mg/5 Ml Liquid 20 Ml PO PRN Q4HRS PRN Tylenol (Acetaminophen) 325 Mg Tablet 2 Tab PO BID [place] (Ketotifen Fumarate) 10 Ml Drops 1 Drop EACHEYE PRN TID PRN Lisinopril 10 Mg Tablet 10 Mg PO DAILY Basaglar Kwikpen U-100 (Insulin Glargine,Hum.rec.anlog) 100 Unit/1 Ml Insuln.pen 6 Unit SQ HS Duoneb 0.5-3(2.5) Mg/3 Ml (Albuterol/Ipratropium) 3 Ml Ampul.neb 3 Ml NEB PRN Q6HRS PRN Alprazolam 1 Mg Tablet 1 Mg PO PRN TID PRN Simethicone 80 Mg Tab.chew 125 Mg PO PRN Q6HRS PRN Aspirin 81 Mg Tab.chew 81 Mg PO DAILY Loperamide (Loperamide Hcl) 2 Mg Tablet 4 Mg PO PRN DAILY PRN Anti-Diarrhea (Loperamide Hcl) 2 Mg Tablet 2 Mg PO PRN Q6HRS PRN Tramadol Hcl (Tramadol HCl) 50 Mg Tablet 50 Mg PO PRN Q6HRS PRN Refresh Optive Eye Drops (Carboxymethylcellulos/Glycerin) 15 Ml Drops 1 Drop EACHEYE PRN QID PRN Famotidine 20 Mg Tablet 10 Mg PO PRN DAILY PRN Dulcolax (Bisacodyl) 5 Mg Tablet.dr 5 Mg PO PRN DAILY PRN Risperdal (Risperidone) 0.25 Mg Tablet 0.75 Mg PO QHS Levothyroxine Sodium 25 Mcg Tablet 25 Mcg PO DAILYAC Zetia (Ezetimibe) 10 Mg Tablet 10 Mg PO DAILY Trazodone Hcl 50 Mg Tablet 25 Mg PO DAILY Celexa (Citalopram Hydrobromide) 20 Mg Tablet 20 Mg PO DAILY 24Hour Allergy (Cetirizine HCl) 10 Mg Tablet 10 Mg PO DAILY I have reviewed the current psychotropics carefully including drug interactions. Risk benefit ratio favors no change other than as noted in my dictated progress note. Diagnosis: Problems: (1) Anxiety disorder (2) Dementia, vascular, with delusions (3) Dementia, vascular, with depression (4) Dementia in Alzheimer's disease with depression (5) Dementia in Alzheimer's disease with delusions (6) Impulse control disorder MARIAN PENA MD Feb 27, 2018 22:34
[2018-02-28] MEDS: LEVOTHYROXINE 25 MCG TABLET. PO SCH (05:46)
[2018-02-28 06:00] VITALS: BP 105/61
[2018-02-28] MEDS: EZETIMIBE 10 MG TABLET PO SCH (07:56)
[2018-02-28] MEDS: risperiDONE 0.25 MG TABLET. PO SCH (07:57)
[2018-02-28] MEDS: LISINOPRIL 10 MG TABLET PO SCH (07:57)
[2018-02-28] MEDS: busPIRone 5 MG TABLET. PO SCH ×2 (07:57→17:13)
[2018-02-28] MEDS: CETIRIZINE HCL 10 MG TABLET PO SCH (07:57)
[2018-02-28] MEDS: ACETAMINOPHEN 325 MG TABLET PO SCH ×2 (07:57→19:32)
[2018-02-28] MEDS: ASPIRIN 81 MG TAB.CHEW PO SCH (07:57)
[2018-02-28] MEDS: traZODone 50 MG TABLET. PO SCH (07:58)
[2018-02-28] MEDS: SERTRALINE 50 MG TABLET. PO SCH (07:59)
[2018-02-28] MEDS: NYSTATIN TOPICAL POWDER 15GM BOTTLE. TP SCH ×2 (07:59→19:35)
[2018-02-28 08:10] LABS: BASO # 0.1 x10^3/uL (0.0-0.2); BASO % 2 % (0-3); EOS # 0.3 x10^3/uL (0.0-0.7); EOS % 5 % (0-3); HEMATOCRIT 38.1 % (36.0-47.0); HEMOGLOBIN 12.6 g/dL (12.0-15.5); LYMPH # 1.6 x10^3/uL (1.0-4.8); LYMPH % 29 % (24-48); MEAN CORPUSCULAR HEMOGLOBIN 30 pg (25-35); MEAN CORPUSCULAR HGB CONC 33 g/dL (31-37); MEAN CORPUSCULAR VOLUME 91 fL (79-100); MONO # 0.4 x10^3/uL (0.0-1.1); MONO % 7 % (0-9); NEUT # 3.2 x10^3uL (1.8-7.7); NEUT % 57 % (31-73); PLATELET COUNT 358 x10^3/uL (140-400); RED BLOOD COUNT 4.21 x10^6/uL (3.50-5.40); WHITE BLOOD COUNT 5.6 x10^3/uL (4.0-11.0)
[2018-02-28 08:24] LABS: ALBUMIN 3.7 g/dL (3.4-5.0); CALCIUM 8.8 mg/dL (8.5-10.1); CREATININE 1.7 mg/dL (0.6-1.0); GFR 29.5; POTASSIUM 4.7 mmol/L (3.5-5.1); TOTAL BILIRUBIN 0.3 mg/dL (0.2-1.0); TOTAL PROTEIN 7.4 g/dL (6.4-8.2)
[2018-02-28] MEDS: traMADol 50 MG TABLET PO PRN (10:09)
[2018-02-28 16:07] VITALS: BP 121/75
[2018-02-28] MEDS: INSULIN GLARGINE 300 UNITS/3 ML INSULN.PEN. SQ SCH (19:33)
--- NOTE | 2018-02-28 22:27 | PN ---
DATE: 02/27/2018 PSYCHIATRIC PROGRESS NOTE This late entry 02/27/2018 covers elements not covered in my initial note. SUBJECTIVE: I met with the patient in the evening. The patient slept 8-1/4 hours previous night. She has been somewhat anxious at times. She complains of neck pain, received Ultram x 2 and lidocaine patch to her neck and back for the back pain as well. She gets confused, forgetful, little more anxious towards the evening, but not aggressive. REVIEW OF SYSTEMS: No CV, , pulmonary, eye, ENT system symptoms on review. Reliability poor. MENTAL STATUS EXAM: Oriented to herself. Insight, judgment, recent and remote memory, attention, concentration, fund of knowledge poor, consistent with her diagnosis mentioned in my initial note. PLAN: We will go ahead and change the Celexa 20 mg a day to Zoloft 50 mg a day and we may need to adjust this gradually. Continue Risperdal 0.75 mg at bedtime, trazodone 50 mg at bedtime. MAN Nura PENA MD DR: LILIA/[place] JOB#: [id number] / [id number]
--- NOTE | 2018-02-28 22:36 | PDOC ---
Exam Note: Michael Note: Please also refer to the separate dictated note~for this date of service dictated separately.~Patient seen individually. Discussed the patient with Nursing staff reviewed the chart.~Reviewed interim history and current functioning. Reviewed vital signs,~Labs/ Radiology~and current medications noted below. Continue current treatment with the changes noted in the dictated addendum note Assessment: Vital Signs: Vital Signs Date Time Temp Pulse Resp B/P (MAP) Pulse Ox O2 Delivery O2 Flow Rate FiO2 02/28/18 16:07 98.4 80 18 121/75 (90) 100 02/28/18 12:10 Room Air I&O Intake and Output 02/28/18 07:00 Intake Total 1320 ml Balance 1320 ml Intake Oral 1320 ml # Bowel Movements 1 Labs: Laboratory Tests Test 02/28/18 07:49 02/28/18 08:03 02/28/18 19:39 White Blood Count 5.6 x10^3/uL (4.0-11.0) Red Blood Count 4.21 x10^6/uL (3.50-5.40) Hemoglobin 12.6 g/dL (12.0-15.5) Hematocrit 38.1 % (36.0-47.0) Mean Corpuscular Volume 91 fL (79-100) Mean Corpuscular Hemoglobin 30 pg (25-35) Mean Corpuscular Hemoglobin Concent 33 g/dL (31-37) Red Cell Distribution Width 14.0 % (11.5-14.5) Platelet Count 358 x10^3/uL (140-400) Neutrophils (%) (Auto) 57 % (31-73) Lymphocytes (%) (Auto) 29 % (24-48) Monocytes (%) (Auto) 7 % (0-9) Eosinophils (%) (Auto) 5 % (0-3) H Basophils (%) (Auto) 2 % (0-3) Neutrophils # (Auto) 3.2 x10^3uL (1.8-7.7) Lymphocytes # (Auto) 1.6 x10^3/uL (1.0-4.8) Monocytes # (Auto) 0.4 x10^3/uL (0.0-1.1) Eosinophils # (Auto) 0.3 x10^3/uL (0.0-0.7) Basophils # (Auto) 0.1 x10^3/uL (0.0-0.2) Sodium Level 137 mmol/L (136-145) Potassium Level 4.7 mmol/L (3.5-5.1) Chloride Level 101 mmol/L (98-107) Carbon Dioxide Level 29 mmol/L (21-32) Anion Gap 7 (6-14) Blood Urea Nitrogen 31 mg/dL (7-20) H Creatinine 1.7 mg/dL (0.6-1.0) H Estimated GFR (Cockcroft-Gault) 29.5 BUN/Creatinine Ratio 18 (6-20) Glucose Level 86 mg/dL (70-99) Calcium Level 8.8 mg/dL (8.5-10.1) Total Bilirubin 0.3 mg/dL (0.2-1.0) Aspartate Amino Transferase (AST) 18 U/L (15-37) Alanine Aminotransferase (ALT) 18 U/L (14-59) Alkaline Phosphatase 88 U/L (46-116) Total Protein 7.4 g/dL (6.4-8.2) Albumin 3.7 g/dL (3.4-5.0) Albumin/Globulin Ratio 1.0 (1.0-1.7) Glucose (Fingerstick) 83 mg/dL (70-99) 95 mg/dL (70-99) Current Medications: Meds: Current Medications Acetaminophen (Tylenol) 650 mg PRN Q6HRS PRN PO PAIN / TEMP Last administered on 02/22/18at 10:30; Start 02/21/18 at 21:45 Multi-Ingredient Ointment (Analgesic [place]) 1 hayley PRN QID PRN TP MUSCLE PAIN; Start 02/21/18 at 21:45 Al Hydroxide/Mg Hydroxide (Mylanta Plus Xs) 15 ml PRN AFTMEALHC PRN PO DYSPEPSIA Last administered on 02/22/18at 13:53; Start 02/21/18 at 21:45 Magnesium Hydroxide (Milk Of Magnesia) 2,400 mg PRN QHS PRN PO CONSTIPATION; Start 02/21/18 at 21:45 Bisacodyl (Dulcolax Tab) 5 mg PRN DAILY PRN PO CONSTIPATION; Start 02/22/18 at 02:00 Citalopram Hydrobromide (CeleXA) 20 mg DAILY PO Last administered on 02/27/18 08:16; Start 02/22/18 at 09:00; Stop 02/27/18 at 17:06; Status DC Guaifenesin (Robitussin) 400 mg PRN Q4HRS PRN PO COUGH; Start 02/22/18 at 02: 00 Insulin Glargine (Lantus) 6 units HS SQ Last administered on 02/28/18at 19:33; Start 02/22/18 at 21:00 Albuterol/ Ipratropium (Duoneb) 3 ml PRN Q6HRS PRN NEB copd; Start 02/22/18 at 02:00 Lisinopril (Prinivil) 10 mg DAILY PO Last administered on 02/28/18at 07:57; Start 02/22/18 at 09:00 Nystatin (Mycostatin) 1 hayley PRN BID PRN TP redness/rash; Start 02/22/18 at 02: 00 Simethicone (Gas-X) 120 mg PRN Q6HRS PRN PO DYSPEPSIA; Start 02/22/18 at 02:00 Tramadol HCl (Ultram) 50 mg PRN Q6HRS PRN PO PAIN Last administered on at 10:09; Start 02/22/18 at 02:00 Alprazolam (Xanax) 1 mg PRN TID PRN PO ANXIETY / AGITATION; Start 02/22/18 at 02:00; Stop 02/23/18 at 16:38; Status DC Aspirin (Children'S Aspirin) 81 mg DAILYWBKFT PO Last administered on at 07:57; Start 02/22/18 at 08:00 Artificial Tears (Artificial Tears) 1 drop QID OU ; Start 02/22/18 at 09:00; Status Cancel Cetirizine HCl (ZyrTEC) 10 mg DAILY PO Last administered on 02/28/18at 07:57; Start 02/22/18 at 09:00 EZETIMIBE (Zetia) 10 mg DAILY PO Last administered on 02/28/18at 07:56; Start 02/22/18 at 09:00 Famotidine (Pepcid) 10 mg PRN DAILY PRN PO DYSPEPSIA Last administered on 02/22at 13:53; Start 02/22/18 at 02:00 Ketotifen Fumarate (Zaditor) 1 drop PRN TID PRN OU ITCHY EYES Last administered on 02/22/18at 16:49; Start 02/22/18 at 07:45 Levothyroxine Sodium (Synthroid) 25 mcg DAILY06 PO Last administered on at 05:46; Start 02/22/18 at 06:00 Loperamide HCl (Imodium) 2 mg PRN Q6HRS PRN PO DIARRHEA; Start 02/22/18 at 02: 00 Loperamide HCl (Imodium) 2 mg PRN 1X PRN PO DIARRHEA; Start 02/22/18 at 02:00 ; Stop 02/22/18 at 10:04; Status DC Risperidone (RisperDAL) 0.75 mg DAILY PO Last administered on 02/28/18at 07:57; Start 02/22/18 at 09:00 Non-Formulary Medication (Risperidone (Risperdal)) 1 mg QHS PO ; Start at 21:00; Stop 02/22/18 at 21:00; Status DC Trazodone HCl (Desyrel) 50 mg DAILY PO Last administered on 02/22/18at 10:29; Start 02/22/18 at 09:00; Stop 02/22/18 at 10:04; Status DC Artificial Tears (Refresh Classic) 1 drop QID OU ; Start 02/22/18 at 09:00; Stop 02/22/18 at 10:04; Status DC Acetaminophen (Tylenol) 650 mg BID PO Last administered on 02/28/18at 19:32; Start 02/22/18 at 21:00 Loperamide HCl (Imodium) 4 mg PRN DAILY PRN PO DIARRHEA Last administered on at 10:48; Start 02/22/18 at 10:15 Artificial Tears (Refresh Classic) 1 drop PRN QID PRN OU DRY EYE; Start at 10:15 Trazodone HCl (Desyrel) 25 mg DAILY PO Last administered on 02/28/18at 07:58; Start 02/23/18 at 09:00 Olanzapine (ZyPREXA ZYDIS) 2.5 mg PRN Q2HR PRN PO PSYCHOSIS Last administered on 02/28/18at 10:09; Start 02/23/18 at 16:45 Nystatin (Nystop) 1 hayley BID TP Last administered on 02/28/18at 19:35; Start 02/25/18 at 21:00 Buspirone HCl (Buspar) 5 mg BID@0900,1700 PO Last administered on 02/28/18 07: 57; Start 02/26/18 at 09:00; Stop 02/28/18 at 16:45; Status DC Lidocaine (Lidoderm) 2 patch DAILY TD Last administered on 02/27/18at 20:13; Start 02/27/18 at 16:00 Sertraline HCl (Zoloft) 50 mg DAILY PO Last administered on 02/28/18at 07:59; Start 02/28/18 at 09:00 Buspirone HCl (Buspar) 5 mg TID@0900,1300,1700 PO Last administered on at 17:13; Start 02/28/18 at 17:00 Active Scripts Active Reported Nystatin 15 Gm Oint...g. 1 Hayley TP PRN BID PRN Margo-Tussin (Guaifenesin) 100 Mg/5 Ml Liquid 20 Ml PO PRN Q4HRS PRN Tylenol (Acetaminophen) 325 Mg Tablet 2 Tab PO BID [place] (Ketotifen Fumarate) 10 Ml Drops 1 Drop EACHEYE PRN TID PRN Lisinopril 10 Mg Tablet 10 Mg PO DAILY Basaglar Kwikpen U-100 (Insulin Glargine,Hum.rec.anlog) 100 Unit/1 Ml Insuln.pen 6 Unit SQ HS Duoneb 0.5-3(2.5) Mg/3 Ml (Albuterol/Ipratropium) 3 Ml Ampul.neb 3 Ml NEB PRN Q6HRS PRN Alprazolam 1 Mg Tablet 1 Mg PO PRN TID PRN Simethicone 80 Mg Tab.chew 125 Mg PO PRN Q6HRS PRN Aspirin 81 Mg Tab.chew 81 Mg PO DAILY Loperamide (Loperamide Hcl) 2 Mg Tablet 4 Mg PO PRN DAILY PRN Anti-Diarrhea (Loperamide Hcl) 2 Mg Tablet 2 Mg PO PRN Q6HRS PRN Tramadol Hcl (Tramadol HCl) 50 Mg Tablet 50 Mg PO PRN Q6HRS PRN Refresh Optive Eye Drops (Carboxymethylcellulos/Glycerin) 15 Ml Drops 1 Drop EACHEYE PRN QID PRN Famotidine 20 Mg Tablet 10 Mg PO PRN DAILY PRN Dulcolax (Bisacodyl) 5 Mg Tablet.dr 5 Mg PO PRN DAILY PRN Risperdal (Risperidone) 0.25 Mg Tablet 0.75 Mg PO QHS Levothyroxine Sodium 25 Mcg Tablet 25 Mcg PO DAILYAC Zetia (Ezetimibe) 10 Mg Tablet 10 Mg PO DAILY Trazodone Hcl 50 Mg Tablet 25 Mg PO DAILY Celexa (Citalopram Hydrobromide) 20 Mg Tablet 20 Mg PO DAILY 24Hour Allergy (Cetirizine HCl) 10 Mg Tablet 10 Mg PO DAILY I have reviewed the current psychotropics carefully including drug interactions. Risk benefit ratio favors no change other than as noted in my dictated progress note. Diagnosis: Problems: (1) Anxiety disorder (2) Dementia, vascular, with delusions (3) Dementia, vascular, with depression (4) Dementia in Alzheimer's disease with depression (5) Dementia in Alzheimer's disease with delusions (6) Impulse control disorder MARIAN PENA MD Feb 28, 2018 22:36
--- NOTE | 2018-02-28 23:51 | RAD ---
Indication:RIGHT SHOULDER PAIN TECHNIQUE: 3 views of the right shoulder COMPARISON:None FINDINGS:No acute fracture or dislocation. No arthritic changes. Visualized right lung is clear. Electronically signed by: Yoel Santos DO (02/28/2018 11:48 PM) [facility]
[2018-03-01] MEDS: LEVOTHYROXINE 25 MCG TABLET. PO SCH (06:02)
[2018-03-01 06:09] VITALS: BP 101/63
[2018-03-01] MEDS: busPIRone 5 MG TABLET. PO SCH ×3 (07:43→16:28)
[2018-03-01] MEDS: CETIRIZINE HCL 10 MG TABLET PO SCH (07:43)
[2018-03-01] MEDS: LISINOPRIL 10 MG TABLET PO SCH (07:44)
[2018-03-01] MEDS: ACETAMINOPHEN 325 MG TABLET PO SCH ×2 (07:44→19:38)
[2018-03-01] MEDS: risperiDONE 0.25 MG TABLET. PO SCH (07:44)
[2018-03-01] MEDS: EZETIMIBE 10 MG TABLET PO SCH (07:45)
[2018-03-01] MEDS: SERTRALINE 50 MG TABLET. PO SCH (07:45)
[2018-03-01] MEDS: traZODone 50 MG TABLET. PO SCH (07:45)
[2018-03-01] MEDS: ASPIRIN 81 MG TAB.CHEW PO SCH (07:45)
[2018-03-01] MEDS: LIDOCAINE (700MG/PATCH) PATCH. TD SCH (07:46)
[2018-03-01] MEDS: NYSTATIN TOPICAL POWDER 15GM BOTTLE. TP SCH ×2 (07:47→19:39)
--- NOTE | 2018-03-01 07:51 | RAD ---
Pelvis with left hip, 3 views, 02/28/2018: HISTORY: Pain No fracture or dislocation is identified. The hip joint spaces are well-maintained. Surgical sutures are present in the pelvis. There is moderate multilevel degenerative change in the lumbar spine with a mild lumbar scoliosis. IMPRESSION: No acute bony abnormality is detected. Electronically signed by: Beau Lowry MD (03/01/2018 7:47 AM) [facility]
[2018-03-01 15:52] VITALS: BP 121/75
[2018-03-01] MEDS: traMADol 50 MG TABLET PO PRN (16:28)
[2018-03-01] MEDS: INSULIN GLARGINE 300 UNITS/3 ML INSULN.PEN. SQ SCH (19:39)
--- NOTE | 2018-03-01 22:38 | PDOC ---
Exam Note: Michael Note: Please also refer to the separate dictated note~for this date of service dictated separately.~Patient seen individually. Discussed the patient with Nursing staff reviewed the chart.~Reviewed interim history and current functioning. Reviewed vital signs,~Labs/ Radiology~and current medications noted below. Continue current treatment with the changes noted in the dictated addendum note Assessment: Vital Signs: Vital Signs Date Time Temp Pulse Resp B/P (MAP) Pulse Ox O2 Delivery O2 Flow Rate FiO2 03/01/18 19:36 99 03/01/18 16:28 16 Room Air 03/01/18 15:52 97.7 80 121/75 (90) I&O Intake and Output 03/01/18 07:00 Intake Total 1200 ml Balance 1200 ml Intake Oral 1200 ml Labs: Laboratory Tests Test 03/01/18 07:30 03/01/18 19:21 Glucose (Fingerstick) 67 mg/dL (70-99) L 114 mg/dL (70-99) H Current Medications: Meds: Current Medications Acetaminophen (Tylenol) 650 mg PRN Q6HRS PRN PO PAIN / TEMP Last administered on 02/22/18at 10:30; Start 02/21/18 at 21:45 Multi-Ingredient Ointment (Analgesic [place]) 1 hayley PRN QID PRN TP MUSCLE PAIN; Start 02/21/18 at 21:45 Al Hydroxide/Mg Hydroxide (Mylanta Plus Xs) 15 ml PRN AFTMEALHC PRN PO DYSPEPSIA Last administered on 02/22/18at 13:53; Start 02/21/18 at 21:45 Magnesium Hydroxide (Milk Of Magnesia) 2,400 mg PRN QHS PRN PO CONSTIPATION; Start 02/21/18 at 21:45 Bisacodyl (Dulcolax Tab) 5 mg PRN DAILY PRN PO CONSTIPATION; Start 02/22/18 at 02:00 Citalopram Hydrobromide (CeleXA) 20 mg DAILY PO Last administered on 02/27/18at 08:16; Start 02/22/18 at 09:00; Stop 02/27/18 at 17:06; Status DC Guaifenesin (Robitussin) 400 mg PRN Q4HRS PRN PO COUGH; Start 02/22/18 at 02: 00 Insulin Glargine (Lantus) 6 units HS SQ Last administered on 03/01/18 19:39; Start 02/22/18 at 21:00 Albuterol/ Ipratropium (Duoneb) 3 ml PRN Q6HRS PRN NEB copd; Start 02/22/18 at 02:00 Lisinopril (Prinivil) 10 mg DAILY PO Last administered on 03/01/18at 07:44; Start 02/22/18 at 09:00 Nystatin (Mycostatin) 1 hayley PRN BID PRN TP redness/rash; Start 02/22/18 at 02: 00 Simethicone (Gas-X) 120 mg PRN Q6HRS PRN PO DYSPEPSIA; Start 02/22/18 at 02:00 Tramadol HCl (Ultram) 50 mg PRN Q6HRS PRN PO PAIN Last administered on 16:28; Start 02/22/18 at 02:00 Alprazolam (Xanax) 1 mg PRN TID PRN PO ANXIETY / AGITATION; Start 02/22/18 at 02:00; Stop 02/23/18 at 16:38; Status DC Aspirin (Children'S Aspirin) 81 mg DAILYWBKFT PO Last administered on 07:45; Start 02/22/18 at 08:00 Artificial Tears (Artificial Tears) 1 drop QID OU ; Start 02/22/18 at 09:00; Status Cancel Cetirizine HCl (ZyrTEC) 10 mg DAILY PO Last administered on 03/01/18 07:43; Start 02/22/18 at 09:00 EZETIMIBE (Zetia) 10 mg DAILY PO Last administered on 03/01/18 07:45; Start 02/22/18 at 09:00 Famotidine (Pepcid) 10 mg PRN DAILY PRN PO DYSPEPSIA Last administered on 02/22 13:53; Start 02/22/18 at 02:00 Ketotifen Fumarate (Zaditor) 1 drop PRN TID PRN OU ITCHY EYES Last administered on 02/22/18 16:49; Start 02/22/18 at 07:45 Levothyroxine Sodium (Synthroid) 25 mcg DAILY06 PO Last administered on 06:02; Start 02/22/18 at 06:00 Loperamide HCl (Imodium) 2 mg PRN Q6HRS PRN PO DIARRHEA; Start 02/22/18 at 02: 00 Loperamide HCl (Imodium) 2 mg PRN 1X PRN PO DIARRHEA; Start 02/22/18 at 02:00 ; Stop 02/22/18 at 10:04; Status DC Risperidone (RisperDAL) 0.75 mg DAILY PO Last administered on 03/01/18at 07:44; Start 02/22/18 at 09:00 Non-Formulary Medication (Risperidone (Risperdal)) 1 mg QHS PO ; Start at 21:00; Stop 02/22/18 at 21:00; Status DC Trazodone HCl (Desyrel) 50 mg DAILY PO Last administered on 02/22/18at 10:29; Start 02/22/18 at 09:00; Stop 02/22/18 at 10:04; Status DC Artificial Tears (Refresh Classic) 1 drop QID OU ; Start 02/22/18 at 09:00; Stop 02/22/18 at 10:04; Status DC Acetaminophen (Tylenol) 650 mg BID PO Last administered on 03/01/18at 19:38; Start 02/22/18 at 21:00 Loperamide HCl (Imodium) 4 mg PRN DAILY PRN PO DIARRHEA Last administered on at 10:48; Start 02/22/18 at 10:15 Artificial Tears (Refresh Classic) 1 drop PRN QID PRN OU DRY EYE; Start at 10:15 Trazodone HCl (Desyrel) 25 mg DAILY PO Last administered on 03/01/18at 07:45; Start 02/23/18 at 09:00 Olanzapine (ZyPREXA ZYDIS) 2.5 mg PRN Q2HR PRN PO PSYCHOSIS Last administered on 02/28/18at 10:09; Start 02/23/18 at 16:45 Nystatin (Nystop) 1 hayley BID TP Last administered on 03/01/18 19:39; Start 02/25/18 at 21:00 Buspirone HCl (Buspar) 5 mg BID@0900,1700 PO Last administered on 02/28/18at 07: 57; Start 02/26/18 at 09:00; Stop 02/28/18 at 16:45; Status DC Lidocaine (Lidoderm) 2 patch DAILY TD Last administered on 03/01/18at 07:46; Start 02/27/18 at 16:00 Sertraline HCl (Zoloft) 50 mg DAILY PO Last administered on 03/01/18at 07:45; Start 02/28/18 at 09:00; Stop 03/01/18 at 11:45; Status DC Buspirone HCl (Buspar) 5 mg TID@0900,1300,1700 PO Last administered on at 16:28; Start 02/28/18 at 17:00 Sertraline HCl (Zoloft) 75 mg DAILY PO ; Start 03/02/18 at 09:00 Active Scripts Active Reported Nystatin 15 Gm Oint...g. 1 Hayley TP PRN BID PRN Margo-Tussin (Guaifenesin) 100 Mg/5 Ml Liquid 20 Ml PO PRN Q4HRS PRN Tylenol (Acetaminophen) 325 Mg Tablet 2 Tab PO BID [place] (Ketotifen Fumarate) 10 Ml Drops 1 Drop EACHEYE PRN TID PRN Lisinopril 10 Mg Tablet 10 Mg PO DAILY Basaglar Kwikpen U-100 (Insulin Glargine,Hum.rec.anlog) 100 Unit/1 Ml Insuln.pen 6 Unit SQ HS Duoneb 0.5-3(2.5) Mg/3 Ml (Albuterol/Ipratropium) 3 Ml Ampul.neb 3 Ml NEB PRN Q6HRS PRN Alprazolam 1 Mg Tablet 1 Mg PO PRN TID PRN Simethicone 80 Mg Tab.chew 125 Mg PO PRN Q6HRS PRN Aspirin 81 Mg Tab.chew 81 Mg PO DAILY Loperamide (Loperamide Hcl) 2 Mg Tablet 4 Mg PO PRN DAILY PRN Anti-Diarrhea (Loperamide Hcl) 2 Mg Tablet 2 Mg PO PRN Q6HRS PRN Tramadol Hcl (Tramadol HCl) 50 Mg Tablet 50 Mg PO PRN Q6HRS PRN Refresh Optive Eye Drops (Carboxymethylcellulos/Glycerin) 15 Ml Drops 1 Drop EACHEYE PRN QID PRN Famotidine 20 Mg Tablet 10 Mg PO PRN DAILY PRN Dulcolax (Bisacodyl) 5 Mg Tablet.dr 5 Mg PO PRN DAILY PRN Risperdal (Risperidone) 0.25 Mg Tablet 0.75 Mg PO QHS Levothyroxine Sodium 25 Mcg Tablet 25 Mcg PO DAILYAC Zetia (Ezetimibe) 10 Mg Tablet 10 Mg PO DAILY Trazodone Hcl 50 Mg Tablet 25 Mg PO DAILY Celexa (Citalopram Hydrobromide) 20 Mg Tablet 20 Mg PO DAILY 24Hour Allergy (Cetirizine HCl) 10 Mg Tablet 10 Mg PO DAILY I have reviewed the current psychotropics carefully including drug interactions. Risk benefit ratio favors no change other than as noted in my dictated progress note. Diagnosis: Problems: (1) Anxiety disorder (2) Dementia, vascular, with delusions (3) Dementia, vascular, with depression (4) Dementia in Alzheimer's disease with depression (5) Dementia in Alzheimer's disease with delusions (6) Impulse control disorder MARIAN PENA MD Mar 01, 2018 22:38
[2018-03-02 05:56] VITALS: BP 94/61
[2018-03-02] MEDS: LEVOTHYROXINE 25 MCG TABLET. PO SCH (06:34)
[2018-03-02] MEDS: CETIRIZINE HCL 10 MG TABLET PO SCH (07:56)
[2018-03-02] MEDS: LIDOCAINE (700MG/PATCH) PATCH. TD SCH (07:56)
[2018-03-02] MEDS: risperiDONE 0.25 MG TABLET. PO SCH (07:56)
[2018-03-02] MEDS: ACETAMINOPHEN 325 MG TABLET PO SCH ×2 (07:56→19:52)
[2018-03-02] MEDS: EZETIMIBE 10 MG TABLET PO SCH (07:56)
[2018-03-02] MEDS: traZODone 50 MG TABLET. PO SCH (07:57)
[2018-03-02] MEDS: LISINOPRIL 10 MG TABLET PO SCH (07:58)
[2018-03-02] MEDS: ASPIRIN 81 MG TAB.CHEW PO SCH (07:58)
[2018-03-02] MEDS: busPIRone 5 MG TABLET. PO SCH ×3 (07:58→18:21)
[2018-03-02] MEDS: SERTRALINE 50 MG TABLET. PO SCH (08:00)
[2018-03-02] MEDS: NYSTATIN TOPICAL POWDER 15GM BOTTLE. TP SCH ×2 (08:00→19:59)
--- NOTE | 2018-03-02 08:47 | PN ---
DATE: 02/28/2018 PSYCHIATRIC PROGRESS NOTE This late entry 02/28/2018 covers elements not covered in my initial note. SUBJECTIVE: I met with the patient in the evening. The patient slept 7 hours previous night. Remains somewhat anxious. REVIEW OF SYSTEMS: Positive for neck and back pain, received Ultram. Did have an x-ray, will defer to Dr. Dudley. Other than this, no CV, , pulmonary, eye, ENT system symptoms on review. Reliability poor. MENTAL STATUS EXAM: Oriented to herself. Insight, judgment, recent and remote memory, attention, concentration, fund of knowledge poor, consistent with her diagnosis mentioned in my initial note. PLAN: Increase BuSpar from 5 mg twice a day to 5 mg 3 times a day and Celexa was changed to Zoloft 50 mg a day. Maintain Risperdal 0.75 mg daily, trazodone 50 mg at bedtime. Adjust further as clinically indicated. MAN Nura PENA MD DR: LILIA/[place] JOB#: [id number] / [id number]
[2018-03-02 16:23] VITALS: BP 147/91
[2018-03-02] MEDS: MIRTAZAPINE 7.5 MG TABLET. PO SCH (19:59)
[2018-03-02] MEDS: INSULIN GLARGINE 300 UNITS/3 ML INSULN.PEN. SQ SCH (20:27)
--- NOTE | 2018-03-02 22:07 | PN ---
DATE: 03/01/2018 PSYCHIATRIC PROGRESS NOTE This late entry 03/01/2018 covers elements not covered in my initial note. SUBJECTIVE: The patient was staffed at a treatment team meeting with the entire team in the morning, seen individually in the evening. The patient slept 4 hours previous evening, still complains of neck and back pain, remains confused, anxious, but not aggressive. REVIEW OF SYSTEMS: No CV, , pulmonary, eye, ENT system symptoms on review. Reliability poor. MENTAL STATUS EXAM: Oriented to herself. Insight, judgment, recent and remote memory, attention, concentration, fund of knowledge poor, consistent with her diagnosis mentioned. IMPRESSION: Major neurocognitive disorder, Alzheimer, vascular with delusion, depression. PLAN: Increase Zoloft from 50 to 75 mg a day; Risperdal, continue 0.75 mg daily; trazodone along with BuSpar unchanged. MAN Nura PENA MD DR: ILLIA/[place] JOB#: [id number] / [id number]
--- NOTE | 2018-03-02 22:21 | PDOC ---
Exam Note: Michael Note: Please also refer to the separate dictated note~for this date of service dictated separately.~Patient seen individually. Discussed the patient with Nursing staff reviewed the chart.~Reviewed interim history and current functioning. Reviewed vital signs,~Labs/ Radiology~and current medications noted below. Continue current treatment with the changes noted in the dictated addendum note Assessment: Vital Signs: Vital Signs Date Time Temp Pulse Resp B/P (MAP) Pulse Ox O2 Delivery O2 Flow Rate FiO2 03/02/18 16:23 97.6 89 20 147/91 (109) 97 Room Air I&O Intake and Output 03/02/18 07:00 Intake Total 1080 ml Balance 1080 ml Intake Oral 1080 ml Labs: Laboratory Tests Test 03/02/18 07:49 03/02/18 08:34 03/02/18 20:01 Glucose (Fingerstick) 54 mg/dL (70-99) L 88 mg/dL (70-99) 149 mg/dL (70-99) H Current Medications: Meds: Current Medications Acetaminophen (Tylenol) 650 mg PRN Q6HRS PRN PO PAIN / TEMP Last administered on 02/22/18at 10:30; Start 02/21/18 at 21:45 Multi-Ingredient Ointment (Analgesic [place]) 1 hayley PRN QID PRN TP MUSCLE PAIN; Start 02/21/18 at 21:45 Al Hydroxide/Mg Hydroxide (Mylanta Plus Xs) 15 ml PRN AFTMEALHC PRN PO DYSPEPSIA Last administered on 02/22/18at 13:53; Start 02/21/18 at 21:45 Magnesium Hydroxide (Milk Of Magnesia) 2,400 mg PRN QHS PRN PO CONSTIPATION; Start 02/21/18 at 21:45 Bisacodyl (Dulcolax Tab) 5 mg PRN DAILY PRN PO CONSTIPATION; Start 02/22/18 at 02:00 Citalopram Hydrobromide (CeleXA) 20 mg DAILY PO Last administered on 02/27/18at 08:16; Start 02/22/18 at 09:00; Stop 02/27/18 at 17:06; Status DC Guaifenesin (Robitussin) 400 mg PRN Q4HRS PRN PO COUGH; Start 02/22/18 at 02: 00 Insulin Glargine (Lantus) 6 units HS SQ Last administered on 03/02/18 20:27; Start 02/22/18 at 21:00 Albuterol/ Ipratropium (Duoneb) 3 ml PRN Q6HRS PRN NEB copd; Start 02/22/18 at 02:00 Lisinopril (Prinivil) 10 mg DAILY PO Last administered on 03/01/18 07:44; Start 02/22/18 at 09:00 Nystatin (Mycostatin) 1 hayley PRN BID PRN TP redness/rash; Start 02/22/18 at 02: 00 Simethicone (Gas-X) 120 mg PRN Q6HRS PRN PO DYSPEPSIA; Start 02/22/18 at 02:00 Tramadol HCl (Ultram) 50 mg PRN Q6HRS PRN PO PAIN Last administered on 16:28; Start 02/22/18 at 02:00 Alprazolam (Xanax) 1 mg PRN TID PRN PO ANXIETY / AGITATION; Start 02/22/18 at 02:00; Stop 02/23/18 at 16:38; Status DC Aspirin (Children'S Aspirin) 81 mg DAILYWBKFT PO Last administered on 07:58; Start 02/22/18 at 08:00 Artificial Tears (Artificial Tears) 1 drop QID OU ; Start 02/22/18 at 09:00; Status Cancel Cetirizine HCl (ZyrTEC) 10 mg DAILY PO Last administered on 03/02/18 07:56; Start 02/22/18 at 09:00 EZETIMIBE (Zetia) 10 mg DAILY PO Last administered on 03/02/18 07:56; Start 02/22/18 at 09:00 Famotidine (Pepcid) 10 mg PRN DAILY PRN PO DYSPEPSIA Last administered on 02/22 13:53; Start 02/22/18 at 02:00 Ketotifen Fumarate (Zaditor) 1 drop PRN TID PRN OU ITCHY EYES Last administered on 02/22/18 16:49; Start 02/22/18 at 07:45 Levothyroxine Sodium (Synthroid) 25 mcg DAILY06 PO Last administered on 12/7/ 18at 06:34; Start 02/22/18 at 06:00 Loperamide HCl (Imodium) 2 mg PRN Q6HRS PRN PO DIARRHEA; Start 02/22/18 at 02: 00 Loperamide HCl (Imodium) 2 mg PRN 1X PRN PO DIARRHEA; Start 02/22/18 at 02:00 ; Stop 02/22/18 at 10:04; Status DC Risperidone (RisperDAL) 0.75 mg DAILY PO Last administered on 03/02/18at 07:56; Start 02/22/18 at 09:00 Non-Formulary Medication (Risperidone (Risperdal)) 1 mg QHS PO ; Start at 21:00; Stop 02/22/18 at 21:00; Status DC Trazodone HCl (Desyrel) 50 mg DAILY PO Last administered on 02/22/18at 10:29; Start 02/22/18 at 09:00; Stop 02/22/18 at 10:04; Status DC Artificial Tears (Refresh Classic) 1 drop QID OU ; Start 02/22/18 at 09:00; Stop 02/22/18 at 10:04; Status DC Acetaminophen (Tylenol) 650 mg BID PO Last administered on 03/02/18at 19:52; Start 02/22/18 at 21:00 Loperamide HCl (Imodium) 4 mg PRN DAILY PRN PO DIARRHEA Last administered on at 10:48; Start 02/22/18 at 10:15 Artificial Tears (Refresh Classic) 1 drop PRN QID PRN OU DRY EYE; Start at 10:15 Trazodone HCl (Desyrel) 25 mg DAILY PO Last administered on 03/02/18at 07:57; Start 02/23/18 at 09:00 Olanzapine (ZyPREXA ZYDIS) 2.5 mg PRN Q2HR PRN PO PSYCHOSIS Last administered on 02/28/18at 10:09; Start 02/23/18 at 16:45 Nystatin (Nystop) 1 hayley BID TP Last administered on 03/02/18at 19:59; Start 02/25/18 at 21:00 Buspirone HCl (Buspar) 5 mg BID@0900,1700 PO Last administered on 02/28/18at 07: 57; Start 02/26/18 at 09:00; Stop 02/28/18 at 16:45; Status DC Lidocaine (Lidoderm) 2 patch DAILY TD Last administered on 03/02/18at 07:56; Start 02/27/18 at 16:00 Sertraline HCl (Zoloft) 50 mg DAILY PO Last administered on 03/01/18at 07:45; Start 02/28/18 at 09:00; Stop 03/01/18 at 11:45; Status DC Buspirone HCl (Buspar) 5 mg TID@0900,1300,1700 PO Last administered on at 18:21; Start 02/28/18 at 17:00 Sertraline HCl (Zoloft) 75 mg DAILY PO Last administered on 03/02/18at 08:00; Start 03/02/18 at 09:00 Mirtazapine (Remeron) 7.5 mg QHS PO Last administered on 03/02/18at 19:59; Start 03/02/18 at 21:00 Active Scripts Active Reported Nystatin 15 Gm Oint...g. 1 Hayley TP PRN BID PRN Margo-Tussin (Guaifenesin) 100 Mg/5 Ml Liquid 20 Ml PO PRN Q4HRS PRN Tylenol (Acetaminophen) 325 Mg Tablet 2 Tab PO BID [place] (Ketotifen Fumarate) 10 Ml Drops 1 Drop EACHEYE PRN TID PRN Lisinopril 10 Mg Tablet 10 Mg PO DAILY Basaglar Kwikpen U-100 (Insulin Glargine,Hum.rec.anlog) 100 Unit/1 Ml Insuln.pen 6 Unit SQ HS Duoneb 0.5-3(2.5) Mg/3 Ml (Albuterol/Ipratropium) 3 Ml Ampul.neb 3 Ml NEB PRN Q6HRS PRN Alprazolam 1 Mg Tablet 1 Mg PO PRN TID PRN Simethicone 80 Mg Tab.chew 125 Mg PO PRN Q6HRS PRN Aspirin 81 Mg Tab.chew 81 Mg PO DAILY Loperamide (Loperamide Hcl) 2 Mg Tablet 4 Mg PO PRN DAILY PRN Anti-Diarrhea (Loperamide Hcl) 2 Mg Tablet 2 Mg PO PRN Q6HRS PRN Tramadol Hcl (Tramadol HCl) 50 Mg Tablet 50 Mg PO PRN Q6HRS PRN Refresh Optive Eye Drops (Carboxymethylcellulos/Glycerin) 15 Ml Drops 1 Drop EACHEYE PRN QID PRN Famotidine 20 Mg Tablet 10 Mg PO PRN DAILY PRN Dulcolax (Bisacodyl) 5 Mg Tablet.dr 5 Mg PO PRN DAILY PRN Risperdal (Risperidone) 0.25 Mg Tablet 0.75 Mg PO QHS Levothyroxine Sodium 25 Mcg Tablet 25 Mcg PO DAILYAC Zetia (Ezetimibe) 10 Mg Tablet 10 Mg PO DAILY Trazodone Hcl 50 Mg Tablet 25 Mg PO DAILY Celexa (Citalopram Hydrobromide) 20 Mg Tablet 20 Mg PO DAILY 24Hour Allergy (Cetirizine HCl) 10 Mg Tablet 10 Mg PO DAILY I have reviewed the current psychotropics carefully including drug interactions. Risk benefit ratio favors no change other than as noted in my dictated progress note. Diagnosis: Problems: (1) Anxiety disorder (2) Dementia, vascular, with delusions (3) Dementia, vascular, with depression (4) Dementia in Alzheimer's disease with depression (5) Dementia in Alzheimer's disease with delusions (6) Impulse control disorder MARIAN PENA MD Mar 02, 2018 22:21
[2018-03-03] MEDS: LEVOTHYROXINE 25 MCG TABLET. PO SCH (05:07)
[2018-03-03] MEDS: traMADol 50 MG TABLET PO PRN (05:07)
[2018-03-03 05:32] VITALS: BP 163/77
[2018-03-03] MEDS: SERTRALINE 50 MG TABLET. PO SCH (07:37)
[2018-03-03] MEDS: CETIRIZINE HCL 10 MG TABLET PO SCH (07:37)
[2018-03-03] MEDS: risperiDONE 0.25 MG TABLET. PO SCH (07:37)
[2018-03-03] MEDS: LIDOCAINE (700MG/PATCH) PATCH. TD SCH (07:37)
[2018-03-03] MEDS: ASPIRIN 81 MG TAB.CHEW PO SCH (07:37)
[2018-03-03] MEDS: traZODone 50 MG TABLET. PO SCH (07:38)
[2018-03-03] MEDS: ACETAMINOPHEN 325 MG TABLET PO SCH ×2 (07:38→19:46)
[2018-03-03] MEDS: busPIRone 5 MG TABLET. PO SCH ×3 (07:38→18:12)
[2018-03-03] MEDS: EZETIMIBE 10 MG TABLET PO SCH (07:38)
[2018-03-03] MEDS: LISINOPRIL 10 MG TABLET PO SCH (07:38)
[2018-03-03] MEDS: NYSTATIN TOPICAL POWDER 15GM BOTTLE. TP SCH ×2 (07:39→19:46)
--- NOTE | 2018-03-03 10:15 | PN ---
DATE: 03/02/2018 PSYCHIATRIC PROGRESS NOTE This is a late entry 03/02/2018, covers elements not covered in my initial note. SUBJECTIVE: I met with the patient in the evening in her room. The patient slept 6-3/4 hours previous evening. The patient is up at night, received Zyprexa at 2:00 a.m., upset with her roommate. REVIEW OF SYSTEMS: No CV, , pulmonary, eye, ENT system symptoms on review. Reliability poor. MENTAL STATUS EXAM: Oriented to herself. Insight, judgment, recent and remote memory, attention, concentration, fund of knowledge poor, consistent with her diagnoses. IMPRESSION: Major neurocognitive disorder, Alzheimer, vascular with delusion, depression, behavioral disturbance. Rest unchanged. PLAN: Start Remeron 7.5 mg at bedtime to help with insomnia and anxiety, continue rest unchanged per initial note. MAN Nura PENA MD DR: LILIA/[place] JOB#: [id number] / [id number]
[2018-03-03 15:34] VITALS: BP 108/67
[2018-03-03] MEDS: MIRTAZAPINE 7.5 MG TABLET. PO SCH (19:46)
[2018-03-03] MEDS: INSULIN GLARGINE 300 UNITS/3 ML INSULN.PEN. SQ SCH (19:47)
--- NOTE | 2018-03-04 01:15 | PN ---
DATE: 03/03/2018 SUBJECTIVE: The patient was seen today, met with the staff, chart reviewed and also covering for Dr. Yusuf. Staff reports no major behavior problems, having some difficulty with sleep, fluctuating, also memory problems. OBSERVATION: VITAL SIGNS: Temperature 97.4, blood pressure 163/77, pulse 98, respirations 20, O2 sat 96%. Slept about 9 hours last night. The patient's appetite is improved. MEDICATIONS: The patient's current medications include mirtazapine 7.5 mg at night, Zoloft 75 mg daily, BuSpar 5 mg t.i.d., trazodone 25 mg at night, Risperdal 0.75 mg daily. The patient has not shown any major behavior problems. The patient did not have any side effects. LABORATORY DATA: The patient's lab reviewed except for slight increase in blood sugar, which were within the normal range. The patient is participating in activities, interacting with the staff. DIAGNOSES: 1. Major neurocognitive disorder, Alzheimer's, vascular with delusions, depression and behavioral disturbances. 2. Anxiety disorder, unspecified. PLAN: To continue with the treatment. JEANETH CASTILLO MD DR: STIVEN/[place] JOB#: [id number] / [id number]
[2018-03-04 05:52] VITALS: BP 107/67
[2018-03-04] MEDS: LEVOTHYROXINE 25 MCG TABLET. PO SCH (06:17)
[2018-03-04] MEDS: LISINOPRIL 10 MG TABLET PO SCH (07:47)
[2018-03-04] MEDS: ASPIRIN 81 MG TAB.CHEW PO SCH (07:47)
[2018-03-04] MEDS: busPIRone 5 MG TABLET. PO SCH ×3 (07:47→16:56)
[2018-03-04] MEDS: traZODone 50 MG TABLET. PO SCH (07:47)
[2018-03-04] MEDS: LIDOCAINE (700MG/PATCH) PATCH. TD SCH (07:47)
[2018-03-04] MEDS: risperiDONE 0.25 MG TABLET. PO SCH (07:48)
[2018-03-04] MEDS: EZETIMIBE 10 MG TABLET PO SCH (07:48)
[2018-03-04] MEDS: ACETAMINOPHEN 325 MG TABLET PO SCH ×2 (07:48→19:46)
[2018-03-04] MEDS: CETIRIZINE HCL 10 MG TABLET PO SCH (07:48)
[2018-03-04] MEDS: SERTRALINE 50 MG TABLET. PO SCH (07:48)
[2018-03-04] MEDS: NYSTATIN TOPICAL POWDER 15GM BOTTLE. TP SCH ×2 (07:49→19:47)
[2018-03-04 16:11] VITALS: BP 123/80
[2018-03-04] MEDS: fentaNYL 12MCG/HR 1 PATCH PATCH TD SCH (16:56)
--- NOTE | 2018-03-04 18:41 | PN ---
DATE: 02/21/2018 SUBJECTIVE: The patient was seen today, met with the staff, chart reviewed. The patient mainly is complaining of difficulty with sleep, also memory problems. OBSERVATION: VITAL SIGNS: Temperature 98.5, blood pressure 107/67, pulse 79, respiration 18, O2 sat 96%. Slept about 9 hours last night. MEDICATIONS: Reviewed. Currently on mirtazapine 7.5 mg at night, Zoloft 75 mg daily, BuSpar 5 mg t.i.d., trazodone 25 mg at night, and Risperdal 0.75 mg daily. The patient is not having any side effects to medications. The patient has not had any falls. LABORATORY DATA: The patient's lab reviewed. DIAGNOSES: 1.Major neurocognitive disorder, Alzheimer's, vascular with delusions, depression and behavioral disturbances. 2.Anxiety disorder, unspecified. PLAN: Continue with the current treatment. JEANETH CASTILLO MD DR: STIVEN/[place] JOB#: [id number] / [id number]
[2018-03-04] MEDS: MIRTAZAPINE 7.5 MG TABLET. PO SCH (19:46)
[2018-03-04] MEDS: INSULIN GLARGINE 300 UNITS/3 ML INSULN.PEN. SQ SCH (19:48)
[2018-03-05 05:55] VITALS: BP 105/63
[2018-03-05] MEDS: LEVOTHYROXINE 25 MCG TABLET. PO SCH (06:23)
[2018-03-05] MEDS: CETIRIZINE HCL 10 MG TABLET PO SCH (08:30)
[2018-03-05] MEDS: ASPIRIN 81 MG TAB.CHEW PO SCH (08:30)
[2018-03-05] MEDS: SERTRALINE 50 MG TABLET. PO SCH (08:31)
[2018-03-05] MEDS: ACETAMINOPHEN 325 MG TABLET PO SCH ×2 (08:31→20:34)
[2018-03-05] MEDS: risperiDONE 0.25 MG TABLET. PO SCH (08:31)
[2018-03-05] MEDS: traZODone 50 MG TABLET. PO SCH (08:34)
[2018-03-05] MEDS: busPIRone 5 MG TABLET. PO SCH ×3 (08:34→16:51)
[2018-03-05] MEDS: LISINOPRIL 10 MG TABLET PO SCH (08:35)
[2018-03-05] MEDS: FLUTICASONE 50MCG/NASAL SPRAY 16GM BOTTLE. NS SCH (08:36)
[2018-03-05] MEDS: LIDOCAINE (700MG/PATCH) PATCH. TD SCH (08:38)
[2018-03-05] MEDS: EZETIMIBE 10 MG TABLET PO SCH (08:38)
[2018-03-05] MEDS: NYSTATIN TOPICAL POWDER 15GM BOTTLE. TP SCH ×2 (08:38→20:34)
[2018-03-05] MEDS: traMADol 50 MG TABLET PO PRN (14:22)
[2018-03-05 15:48] VITALS: BP 111/75
[2018-03-05] MEDS ORDERED: FLUTICASONE 50MCG/NASAL SPRAY 16GM BOTTLE. NS SCH (17:15)
[2018-03-05] MEDS: MIRTAZAPINE 7.5 MG TABLET. PO SCH (20:36)
[2018-03-05] MEDS: INSULIN GLARGINE 300 UNITS/3 ML INSULN.PEN. SQ SCH (20:36)
--- NOTE | 2018-03-06 03:52 | PN ---
DATE: 03/05/2018 SUBJECTIVE: The patient was seen today, met with the staff, chart reviewed. The patient mainly focused on the chronic pain and having difficulty sleeping at night sometimes because of pain. The patient is able to walk. No falls recently. OBSERVATION: VITAL SIGNS: Temperature 98.3, blood pressure 105/63, pulse 82, respirations 16, O2 sat 95%. Slept about 7 hours last night. The patient is still confused at times, increased anxiety. The patient was continued on all medications including mirtazapine 7.5 mg at night, Zoloft 75 mg daily, BuSpar 5 mg t.i.d., trazodone 25 mg at night and Risperdal 0.75 mg daily. The patient is not showing any side effects. The patient denies of any major medical issues at this time. The patient's lab reviewed. ASSESSMENT: 1. Major neurocognitive disorder, Alzheimer's, vascular with delusions, depression and behavioral disturbances. 2. Anxiety disorder, unspecified. PLAN: Continue with the treatment. JEANETH CASTILLO MD DR: STIVEN/[place] JOB#: [id number] / [id number]
[2018-03-06 05:45] VITALS: BP 111/64
[2018-03-06] MEDS: LEVOTHYROXINE 25 MCG TABLET. PO SCH ×2 (06:00→08:01)
[2018-03-06] MEDS: risperiDONE 0.25 MG TABLET. PO SCH (08:01)
[2018-03-06] MEDS: EZETIMIBE 10 MG TABLET PO SCH (08:01)
[2018-03-06] MEDS: traZODone 50 MG TABLET. PO SCH (08:01)
[2018-03-06] MEDS: ACETAMINOPHEN 325 MG TABLET PO SCH ×2 (08:02→20:15)
[2018-03-06] MEDS: LISINOPRIL 10 MG TABLET PO SCH (08:02)
[2018-03-06] MEDS: SERTRALINE 50 MG TABLET. PO SCH (08:02)
[2018-03-06] MEDS: CETIRIZINE HCL 10 MG TABLET PO SCH (08:02)
[2018-03-06] MEDS: busPIRone 5 MG TABLET. PO SCH ×3 (08:02→18:38)
[2018-03-06] MEDS: LIDOCAINE (700MG/PATCH) PATCH. TD SCH (08:03)
[2018-03-06] MEDS: ASPIRIN 81 MG TAB.CHEW PO SCH (08:03)
[2018-03-06] MEDS: NYSTATIN TOPICAL POWDER 15GM BOTTLE. TP SCH ×2 (08:05→20:14)
[2018-03-06] MEDS: FLUTICASONE 50MCG/NASAL SPRAY 16GM BOTTLE. NS SCH (08:05)
[2018-03-06 16:12] VITALS: BP 92/63
[2018-03-06] MEDS: MIRTAZAPINE 7.5 MG TABLET. PO SCH (20:14)
[2018-03-06] MEDS: INSULIN GLARGINE 300 UNITS/3 ML INSULN.PEN. SQ SCH (20:15)
--- NOTE | 2018-03-07 01:02 | PN ---
DATE: 03/06/2018 SUBJECTIVE: The patient was seen today, met with the staff, and chart reviewed. The patient continues to have multiple physical complaints. OBSERVATION: VITAL SIGNS: Temperature 98.5, blood pressure 111/64, pulse 80, respirations 18, O2 sat 94%. Slept about 6 hours last night. The patient's appetite has improved. The patient is not exhibiting any side effects to the medications. CURRENT MEDICATIONS: She will continue on mirtazapine, Zoloft, BuSpar, Risperdal, and trazodone. ASSESSMENT: 1. Major neurocognitive disorder, Alzheimer's, vascular with delusions, depression and behavioral disturbances. 2. Anxiety disorder, unspecified. PLAN: To continue with the treatment. JEANETH CASTILLO MD DR: STIVEN/[place] JOB#: [id number] / [id number]
[2018-03-07 05:46] VITALS: BP 104/64
[2018-03-07] MEDS: ASPIRIN 81 MG TAB.CHEW PO SCH (08:50)
[2018-03-07] MEDS: busPIRone 5 MG TABLET. PO SCH ×3 (08:51→16:01)
[2018-03-07] MEDS: LISINOPRIL 10 MG TABLET PO SCH (08:51)
[2018-03-07] MEDS: CETIRIZINE HCL 10 MG TABLET PO SCH (08:51)
[2018-03-07] MEDS: ACETAMINOPHEN 325 MG TABLET PO SCH ×2 (08:51→19:44)
[2018-03-07] MEDS: EZETIMIBE 10 MG TABLET PO SCH (08:51)
[2018-03-07] MEDS: traZODone 50 MG TABLET. PO SCH (08:52)
[2018-03-07] MEDS: risperiDONE 0.25 MG TABLET. PO SCH (08:52)
[2018-03-07] MEDS: SERTRALINE 50 MG TABLET. PO SCH (08:52)
[2018-03-07] MEDS: LIDOCAINE (700MG/PATCH) PATCH. TD SCH (08:53)
[2018-03-07] MEDS: fentaNYL 12MCG/HR 1 PATCH PATCH TD SCH (08:54)
[2018-03-07] MEDS: NYSTATIN TOPICAL POWDER 15GM BOTTLE. TP SCH ×2 (08:57→19:44)
[2018-03-07] MEDS: FLUTICASONE 50MCG/NASAL SPRAY 16GM BOTTLE. NS SCH (08:57)
[2018-03-07] MEDS: ACETAMINOPHEN 325 MG TABLET PO PRN (14:26)
[2018-03-07 15:59] VITALS: BP 97/58
[2018-03-07] MEDS: MIRTAZAPINE 7.5 MG TABLET. PO SCH (19:44)
[2018-03-07] MEDS: INSULIN GLARGINE 300 UNITS/3 ML INSULN.PEN. SQ SCH (19:45)
[2018-03-08] MEDS ORDERED: ACET325T9 PO (00:36)
[2018-03-08] MEDS ORDERED: INSU100I13 SQ (00:39)
[2018-03-08] MEDS ORDERED: FLUT16SP21 NS (00:39)
[2018-03-08] MEDS ORDERED: MAG355OR17 PO (00:40)
[2018-03-08] MEDS ORDERED: LIDO700A39 TD (00:40)
[2018-03-08] MEDS ORDERED: MAGN2400 PO (00:41)
[2018-03-08] MEDS ORDERED: METH29OI TP (00:41)
[2018-03-08] MEDS ORDERED: MIRT15TA PO (00:42)
[2018-03-08] MEDS ORDERED: NYST15CR2 TP (00:44)
[2018-03-08] MEDS ORDERED: SERT100T PO (00:44)
[2018-03-08] MEDS ORDERED: OLAN5TAB5 PO (00:44)
[2018-03-08] MEDS ORDERED: BUSP5TAB PO (00:45)
[2018-03-08] MEDS ORDERED: FENT-73 TP (00:46)
[2018-03-08] MEDS: LEVOTHYROXINE 25 MCG TABLET. PO SCH (05:21)
[2018-03-08 05:35] VITALS: BP 105/52
[2018-03-08] MEDS: risperiDONE 0.25 MG TABLET. PO SCH (07:35)
[2018-03-08] MEDS: CETIRIZINE HCL 10 MG TABLET PO SCH (07:35)
[2018-03-08] MEDS: EZETIMIBE 10 MG TABLET PO SCH (07:35)
[2018-03-08] MEDS: traZODone 50 MG TABLET. PO SCH (07:36)
[2018-03-08] MEDS: ASPIRIN 81 MG TAB.CHEW PO SCH (07:37)
[2018-03-08] MEDS: FLUTICASONE 50MCG/NASAL SPRAY 16GM BOTTLE. NS SCH (07:37)
[2018-03-08] MEDS: SERTRALINE 50 MG TABLET. PO SCH (07:37)
[2018-03-08] MEDS: ACETAMINOPHEN 325 MG TABLET PO SCH (07:37)
[2018-03-08] MEDS: busPIRone 5 MG TABLET. PO SCH (07:37)
[2018-03-08 07:38] VITALS: BP 110/75
[2018-03-08] MEDS: NYSTATIN TOPICAL POWDER 15GM BOTTLE. TP SCH (07:38)
[2018-03-08] MEDS: LIDOCAINE (700MG/PATCH) PATCH. TD SCH (07:38)
[2018-03-08] MEDS: LISINOPRIL 10 MG TABLET PO SCH (07:38)
--- NOTE | 2018-03-08 11:10 | PN ---
DATE: 03/07/2018 SUBJECTIVE: The patient was seen today, met with the staff, chart reviewed. Staff reports no major problems, but the patient continues to have multiple physical complaints. OBSERVATION: VITAL SIGNS: Temperature 97.9, blood pressure 104/64, pulse 96, respirations 18, O2 sat 94%. Slept about 7 hours last night. The patient's appetite is improved. The patient's medication reviewed. Labs reviewed. Currently, not presenting with any physical problems and also not having any side effects. ASSESSMENT: Major neurocognitive disorder, Alzheimer's, vascular with delusions, depression and behavioral disturbances. PLAN: To continue with the treatment. JEANETH CASTILLO MD DR: STIVEN/[place] JOB#: [id number] / [id number]
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
== END 2018-03-08 10:48 | DRG 57 ==
LOC: ER 17:38 → GEROPSY 19:51
PROVIDERS: ADMIT Psychiatry & Neurology Psychiatry; ATTEND Psychiatry & Neurology Psychiatry
DX: G30.9 Alzheimer's disease, unspecified (principal); F01.51 Vascular dementia, unspecified severity, with behavioral disturbance; F02.81 Dementia in other diseases classified elsewhere, unspecified severity, with behavioral disturbance; R45.851 Suicidal ideations; E11.9 Type 2 diabetes mellitus without complications; E78.5 Hyperlipidemia, unspecified; F32.9 Major depressive disorder, single episode, unspecified; F41.9 Anxiety disorder, unspecified; F63.9 Impulse disorder, unspecified; G89.29 Other chronic pain; I10 Essential (primary) hypertension; J44.9 Chronic obstructive pulmonary disease, unspecified; Z66 Do not resuscitate; Z79.82 Long term (current) use of aspirin; Z79.890 Hormone replacement therapy; Z79.899 Other long term (current) drug therapy; Z88.6 Allergy status to analgesic agent; Z88.1 Allergy status to other antibiotic agents; Z88.8 Allergy status to other drugs, medicaments and biological substances
CPT/HCPCS: 36415; 73030; 73502; 80048; 80053; 80061; 80076; 81001; 82947; 83036; 83735; 84436; 84443; 84480; 85025; 85651; 86140; 86592; 93005; J1815; 97116; 99285-25